=== PATIENT | female | born 1985 | race African-American/Black ===

== ENCOUNTER → 2016-07-20 | Outpatient (CLI) | payer MEDICARE, MEDICAID ==
[2016-07-20 13:09] LABS: AUTOMATED NEUTROPHIL # 2.1 TH/MM3 (1.8-7.7); BASOPHIL % 0.5 % (0.0-2.0); EOSINOPHIL # 0.1 TH/MM3 (0-0.4); EOSINOPHIL % 1.3 % (0.0-4.0); HEMATOCRIT 33.8 % (35.0-46.0); HEMO FLAGS DIFF FINAL; LYMPH % 36.3 % (9.0-44.0); LYMPHOCYTE # 1.6 TH/MM3 (1.0-4.8); MEAN CELL VOLUME 91.1 FL (80.0-100.0); MEAN CORPUSCULAR HEMOGLOBIN 30.2 PG (27.0-34.0); MEAN CORPUSCULAR HGB CONC 33.1 % (32.0-36.0); MONO % 13.9 % (0.0-8.0); PLATELET COUNT 220 TH/MM3 (150-450); RED CELL DISTRIBUTION WIDTH 13.9 % (11.6-17.2); WHITE BLOOD COUNT 4.3 TH/MM3 (4.0-11.0)
[2016-07-20 13:23] LABS: HEMOGLOBIN A1a 1.3 %; HEMOGLOBIN A1b 0.7 %; HEMOGLOBIN Ao 86.1 %; HEMOGLOBIN LA1C 1.8 %; HEMOGLOBIN P3 3.2 %
[2016-07-20 13:40] LABS: ANION GAP 4 MEQ/L (5-15); AST (GOT) 29 U/L (15-37); BICARBONATE 30.9 MEQ/L (21.0-32.0); BLOOD UREA NITROGEN 8 MG/DL (7-18); CHLORIDE 102 MEQ/L (98-107); GLOMERULAR FILTRATION RATE 117 ML/MIN (>89); GLUCOSE,FASTING 87 MG/DL (74-99); SODIUM (NA) 137 MEQ/L (136-145)
[2016-07-20 13:44] LABS: ALKALINE PHOSPHATASE 77 U/L (45-117); ALT (GPT) 34 U/L (10-53); TOTAL BILIRUBIN ADULT 0.4 MG/DL (0.2-1.0)
== END ==
LOC: CLAB 12:39
PROVIDERS: ATTEND Family Medicine
DX: E16.1 Other hypoglycemia (principal)
CPT/HCPCS: 36415; 80053; 83036; 85025

== ENCOUNTER → 2016-08-22 | Outpatient (CLI) | payer MEDICARE, MEDICAID ==
[2016-08-22 10:54] LABS: BASOPHIL % 0.6 % (0.0-2.0); EOSINOPHIL % 1.2 % (0.0-4.0); HEMATOCRIT 35.9 % (35.0-46.0); HEMO FLAGS DIFF FINAL; LYMPH % 32.5 % (9.0-44.0); LYMPHOCYTE # 1.2 TH/MM3 (1.0-4.8); MEAN CELL VOLUME 93.4 FL (80.0-100.0); MEAN CORPUSCULAR HEMOGLOBIN 30.4 PG (27.0-34.0); MEAN CORPUSCULAR HGB CONC 32.5 % (32.0-36.0); MONO % 14.2 % (0.0-8.0); NEUT % 51.5 % (16.0-70.0); PLATELET COUNT 209 TH/MM3 (150-450); RED BLOOD COUNT 3.85 MIL/MM3 (4.00-5.30); RED CELL DISTRIBUTION WIDTH 13.9 % (11.6-17.2); WHITE BLOOD COUNT 3.8 TH/MM3 (4.0-11.0)
[2016-08-22 11:33] LABS: ALKALINE PHOSPHATASE 75 U/L (45-117); ALT (GPT) 38 U/L (10-53); ANION GAP 7 MEQ/L (5-15); AST (GOT) 34 U/L (15-37); BICARBONATE 27.2 MEQ/L (21.0-32.0); BLOOD UREA NITROGEN 10 MG/DL (7-18); CHLORIDE 102 MEQ/L (98-107); FREE T4 0.83 NG/DL (0.76-1.46); GLOMERULAR FILTRATION RATE 93 ML/MIN (>89); GLUCOSE,FASTING 84 MG/DL (74-99); HDL CHOLESTEROL 112.3 MG/DL (40.0-60.0); INDIRECT BILIRUBIN 0.3 MG/DL (0.0-0.8); LDL CHOLESTEROL 66 MG/DL (0-99); POTASSIUM 4.2 MEQ/L (3.5-5.1); SODIUM (NA) 136 MEQ/L (136-145); TOTAL BILIRUBIN ADULT 0.4 MG/DL (0.2-1.0)
[2016-08-22 17:16] LABS: HEMOGLOBIN A1a 1.2 %; HEMOGLOBIN A1b 0.7 %; HEMOGLOBIN Ao 86.3 %; HEMOGLOBIN F 1.3 %; HEMOGLOBIN LA1C 1.9 %; HEMOGLOBIN P3 3.2 %
== END ==
LOC: CLAB 10:31
PROVIDERS: ATTEND Internal Medicine Cardiovascular Disease
DX: R06.02 Shortness of breath (principal); R07.2 Precordial pain; I42.0 Dilated cardiomyopathy; E78.2 Mixed hyperlipidemia; R73.01 Impaired fasting glucose; Z79.899 Other long term (current) drug therapy
CPT/HCPCS: 36415; 80048; 80061; 80076; 83036; 84439; 84443; 85025

== ENCOUNTER 2017-08-15 18:36 | Emergency (ER) | payer MEDICAID, MEDICARE ==
[~2017-08-15] VITALS: Ht 175.3 cm; Wt 76.0 kg
[2017-08-15 18:40] VITALS: BP 124/66; PULSE 88; RESP 16; RESP 46; TEMP 98.1; O2SAT 99
[2017-08-15] MEDS ORDERED: CARV20 PO (18:52)
[2017-08-15] MEDS ORDERED: FURO1TAB62 PO (18:52)
[2017-08-15] MEDS ORDERED: AMLO10TA2 PO (18:52)
[2017-08-15] MEDS ORDERED: SODIUM CHLORIDE 0.9% FLUSH 10 ML FLUSH IV FLUSH PRN (19:00)
--- NOTE | 2017-08-15 19:05 | PD ---
HPI Chief Complaint: Edema Time Seen by Provider: 18:53 Travel History International Travel<30 days: No Contact w/Intl Traveler<30days: No Traveled to known affect area: No History of Present Illness HPI 31-year-old female with history of cardiomyopathy on Lasix 20 mg twice a day, lisinopril, amlodipine, here for evaluation of bilateral lower extremity edema and left flank pain. The patient first noticed the lower extremity edema yesterday. When she woke up this morning it seemed to be improved, however worsened throughout the day today, is bilateral. No leg pain. No chest pain or dyspnea. She reports that she weighed herself last week and she was 155 pounds, and in triage today she was 160 pounds. She also has complaining of a discomfort in her left flank which she believes to be musculoskeletal. Pain described as a discomfort, mild to moderate, radiates occasionally to her left upper abdomen, no modifying factors. No hematuria or dysuria. No fevers or chills. PFSH Past Medical History Hx Anticoagulant Therapy: No Anemia: Yes Autoimmune Disease: Yes (LUPUS) Blood Disorders: No Anxiety: No Depression: No Cancer: No Cardiomyopathy: Yes ("SINCE ") Cardiovascular Problems: Yes (Cardiomyopathy ) High Cholesterol: No Chemotherapy: No Congestive Heart Failure: Yes Cerebrovascular Accident: No Diabetes: Yes (TYPE II MANAGED BY DIET ) Patient Takes Glucophage: No Diminished Hearing: No Endocrine: Yes Gastrointestinal Disorders: No Genitourinary: No Hypertension: Yes Immune Disorder: No Implanted Vascular Access Dvce: No Musculoskeletal: No Neurologic: No Psychiatric: No Reproductive: No Respiratory: No Immunizations Current: Yes ?: Not Menopausal: No : 2 Para: 1 Miscarriage: 0 : 1 Tubal Ligation: Yes Past Surgical History Abdominal Surgery: Yes (GASTRIC BYPASS SURGERY 2010) AICD: No Appendectomy: Yes Arteriovenous Shunt: No Section: Yes (X1) Gynecologic Surgery: Yes (C SECTION 2009) Hysterectomy: No Insulin Pump: No Joint Replacement: No Oral Surgery: Yes (X's 2 ) Pacemaker: No Other Surgery: Yes Social History Alcohol Use: Yes (3-4 times per week-wine) Tobacco Use: No Substance Use: No Allergies-Medications (Allergen,Severity, Reaction): Coded Allergies: iodine (Unverified Allergy, Intermediate, HIVES, 08/15/17) ALL OVER potassium iodide (Unverified Allergy, Intermediate, HIVES, 08/15/17) ALL OVER povidone-iodine (Unverified Allergy, Intermediate, HIVES, 08/15/17) ALL OVER sodium iodide (Unverified Allergy, Intermediate, HIVES, 08/15/17) ALL OVER sodium iodide (Unverified Allergy, Intermediate, HIVES, 08/15/17) ALL OVER shellfish derived (Unverified Adverse Reaction, Severe, Anaphylaxis, ) THROAT SWELLS AND CLOSES UP lactose (Unverified Adverse Reaction, Intermediate, DIARRHEA, 08/15/17) Reported Meds & Prescriptions Reported Meds & Active Scripts Active Reported Amlodipine (Amlodipine Besylate) 10 Mg Tab 10 Mg PO DAILY Lasix (Furosemide) 20 Mg Tab 20 Mg PO BID Coreg Cr 24 HR (Carvedilol) 20 Mg Cap 20 Mg PO DAILY Review of Systems Except as stated in HPI: all other systems reviewed are Neg Physical Exam Narrative GENERAL: Well-developed, well-nourished, comfortable, no acute distress. SKIN: Focused skin assessment warm/dry. HEAD: Atraumatic. Normocephalic. EYES: Pupils equal and round. No scleral icterus. No injection or drainage. ENT: No nasal bleeding or discharge. Mucous membranes pink and moist. NECK: Trachea midline. No JVD. CARDIOVASCULAR: Regular rate and rhythm. Distal pulses brisk and equal bilaterally. RESPIRATORY: No accessory muscle use. Clear to auscultation. Breath sounds equal bilaterally. GASTROINTESTINAL: Abdomen soft, nondistended. Mild epigastric and left upper quadrant tenderness without peritoneal signs. MUSCULOSKELETAL: No obvious deformities. No clubbing. No cyanosis. Mild bilateral lower extremity edema from foot to knee. Bilateral calves are supple , nontender. Mild left CVA tenderness. No right CVA tenderness. No midline vertebral step-off or tenderness. NEUROLOGICAL: Awake and alert. No obvious cranial nerve deficits. Motor grossly within normal limits. Normal speech. PSYCHIATRIC: Appropriate mood and affect; insight and judgment normal. Data Data Last Documented VS Vital Signs Date Time Temp Pulse Resp B/P (MAP) Pulse Ox O2 Delivery O2 Flow Rate FiO2 08/15/17 19:32 100 16 100 Room Air 08/15/17 18:40 98.1 124/66 (85) Orders Orders Complete Blood Count With Diff (08/15/17 19:00) Comprehensive Metabolic Panel (08/15/17 19:00) Lipase (08/15/17 19:00) Lactic Acid (08/15/17 19:00) Prothrombin Time / Inr (Pt) (08/15/17:00) Act Partial Throm Time (Ptt) (08/15/17:00) Urinalysis - C+S If Indicated (08/15/17:00) Ct Abd/Pel W/O Iv Contrast (08/15/17:00) Iv Access Insert/Monitor (08/15/17:00) Ecg Monitoring (08/15/17:00) Oximetry (08/15/17:00) Sodium Chloride 0.9% Flush (Ns Flush) (08/15/17:00) Electrocardiogram (08/15/17:00) Ed Urine Pregnancytest Poc (08/15/17:00) B-Type Natriuretic Peptide (08/15/17:00) Ckmb (Isoenzyme) Profile (08/15/17:00) Troponin I (08/15/17 19:00) Chest, Single Ap (08/15/17 19:00) Us Leg Venous Doppler Bilat (08/15/17 ) Oral Contrast - Adult (08/15/17 19:11) Diatrizoate Liq ( Gastroview Liq) (08/15/17 19:30) CKMB (08/15/17 19:16) CKMB% (08/15/17 19:16) Labs Laboratory Tests Test 08/15/17 19:16 White Blood Count 4.1 TH/MM3 Red Blood Count 3.81 MIL/MM3 Hemoglobin 11.4 GM/DL Hematocrit 35.9 % Mean Corpuscular Volume 94.3 FL Mean Corpuscular Hemoglobin 30.0 PG Mean Corpuscular Hemoglobin Concent 31.8 % Red Cell Distribution Width 13.4 % Platelet Count 251 TH/MM3 Mean Platelet Volume 8.0 FL Neutrophils (%) (Auto) 48.1 % Lymphocytes (%) (Auto) 38.9 % Monocytes (%) (Auto) 10.6 % Eosinophils (%) (Auto) 1.6 % Basophils (%) (Auto) 0.8 % Neutrophils # (Auto) 2.0 TH/MM3 Lymphocytes # (Auto) 1.6 TH/MM3 Monocytes # (Auto) 0.4 TH/MM3 Eosinophils # (Auto) 0.1 TH/MM3 Basophils # (Auto) 0.0 TH/MM3 CBC Comment DIFF FINAL Differential Comment Prothrombin Time 9.8 SEC Prothromb Time International Ratio 1.0 RATIO Activated Partial Thromboplast Time 26.4 SEC Urine Color YELLOW Urine Turbidity CLEAR Urine pH 5.5 Urine Specific [place] 1.025 Urine Protein NEG mg/dL Urine Glucose (UA) NEG mg/dL Urine Ketones NEG mg/dL Urine Occult Blood MOD Urine Nitrite NEG Urine Bilirubin NEG Urine Urobilinogen 0.2 MG/DL Urine Leukocyte Esterase NEG Urine RBC 3-5 /hpf Urine WBC 3-5 /hpf Urine Squamous Epithelial Cells > 8 /hpf Urine Bacteria OCC /hpf Microscopic Urinalysis Comment CULT NOT INDICATED Blood Urea Nitrogen 9 MG/DL Creatinine 0.84 MG/DL Random Glucose 86 MG/DL Total Protein 9.3 GM/DL Albumin 3.8 GM/DL Calcium Level 9.1 MG/DL Alkaline Phosphatase 84 U/L Aspartate Amino Transf (AST/SGOT) 77 U/L Alanine Aminotransferase (ALT/SGPT) 44 U/L Total Bilirubin 0.3 MG/DL Sodium Level 136 MEQ/L Potassium Level 3.9 MEQ/L Chloride Level 101 MEQ/L Carbon Dioxide Level 29.2 MEQ/L Anion Gap 6 MEQ/L Estimat Glomerular Filtration Rate 94 ML/MIN Lactic Acid Level 0.8 mmol/L Total Creatine Kinase 204 U/L Creatine Kinase MB 1.2 NG/ML Creatine Kinase MB % 0.6 % Troponin I LESS THAN 0.02 NG/ML B-Type Natriuretic Peptide 10 PG/ML Lipase 78 U/L [facility] Medical Decision Making Medical Screen Exam Complete: Yes Emergency Medical Condition: Yes Interpretation(s) EKG: Sinus, rate 65, normal axis, normal intervals, no acute ischemic abnormality. Differential Diagnosis Fluid overload, renal insufficiency, DVT, nephrolithiasis, ureterolithiasis, pyelonephritis, medication side effect to amlodipine Narrative Course Initial vital signs show heart rate 88, blood pressure 1/24/66, pulse ox 99% on room air, oral temp of 98.1F. CBC: WBC 4.1, hemoglobin 11.4, hematocrit 35.9, platelets 250. CMP is unremarkable. Cardiac enzymes are negative. BNP is 10. Lactic acid is 0.8. UA: Moderate occult blood, greater than 8 epithelial cells, occasional bacteria, negative nitrites, negative leukocyte esterase, not suggestive of UTI. Chest x-ray: CONCLUSION: The lungs are clear. Bilateral lower extremity duplex: CONCLUSION: Negative for deep venous thrombosis bilateral lower extremity. CT abdomen pelvis: CONCLUSION: 1. No dilated loops of small or large bowel. 2. No evidence of free fluid or free intraperitoneal gas. Patient was made aware of all findings. She states that her menstrual period ended yesterday, likely attributing to the microscopic hematuria seen on UA. At this point I believe she is stable for discharge home with outpatient follow- up with her primary care physician and flooring grader this week. I advised that she discontinue her amlodipine and that she were compression stockings and keep her legs elevated. She tells me that she usually wears compression stockings, however she did not wear them yesterday, and she stands on her feet all day at work. She is stable for discharge home with outpatient follow-up. She was advised on when to return to the emergency department. She verbalizes understanding and agreement with plan. Diagnosis Primary Impression: Bilateral lower extremity edema Additional Impressions: Left flank pain Microscopic hematuria Referrals: Greeting Card Maker 3 days Primary Care Physician 3 days Additional Instructions: Follow-up with your primary care physician this week. Follow-up with your flooring grader this week. Return to the emergency department for worsening symptoms or any other concerns. Disposition: 01 DISCHARGE HOME Condition: Stable dEward Miller MD Aug 15, 2017 19:05
[2017-08-15] MEDS ORDERED: DIATRIZOATE MEGLUM/DIATRIZOATE SOD 9 ML CUP PO ONE (19:30)
[2017-08-15 19:32] VITALS: PULSE 100; RESP 16; O2SAT 100
[2017-08-15 19:32] LABS: BILIRUBIN, URINE NEG (NEG); BLOOD, URINE MOD (NEG); GLUCOSE,URINE NEG (NEG); KETONE, URINE NEG (NEG); NITRITE,URINE NEG (NEG); PH, URINE 5.5 (5.0-8.5); URINE COLOR YELLOW (YELLW/STRAW); URINE LEUKOCYTE ESTERASE NEG (NEG)
[2017-08-15 19:36] LABS: BACTERIA, URINE OCC /hpf; SQUAMOUS EPITHELIAL CELL URINE > 8 /hpf (0-5)
[2017-08-15 19:40] LABS: BASOPHIL % 0.8 % (0.0-2.0); EOSINOPHIL # 0.1 TH/MM3 (0-0.4); EOSINOPHIL % 1.6 % (0.0-4.0); HEMATOCRIT 35.9 % (35.0-46.0); HEMOGLOBIN 11.4 GM/DL (11.6-15.3); LYMPH % 38.9 % (9.0-44.0); LYMPHOCYTE # 1.6 TH/MM3 (1.0-4.8); MEAN CELL VOLUME 94.3 FL (80.0-100.0); MEAN CORPUSCULAR HGB CONC 31.8 % (32.0-36.0); MONO % 10.6 % (0.0-8.0); MONOCYTE # 0.4 TH/MM3 (0-0.9); NEUT % 48.1 % (16.0-70.0); PLATELET COUNT 251 TH/MM3 (150-450); RED BLOOD COUNT 3.81 MIL/MM3 (4.00-5.30); RED CELL DISTRIBUTION WIDTH 13.4 % (11.6-17.2); WHITE BLOOD COUNT 4.1 TH/MM3 (4.0-11.0)
[2017-08-15 19:41] LABS: CHLORIDE 101 MEQ/L (98-107); SODIUM (NA) 136 MEQ/L (136-145)
[2017-08-15 19:44] LABS: CALCIUM 9.1 MG/DL (8.5-10.1)
[2017-08-15 19:45] LABS: ALBUMIN 3.8 GM/DL (3.4-5.0); BICARBONATE 29.2 MEQ/L (21.0-32.0); BLOOD UREA NITROGEN 9 MG/DL (7-18); GLUCOSE,RANDOM 86 MG/DL (74-106)
--- NOTE | 2017-08-15 19:46 | RADRPT ---
EXAM DATE/TIME: 08/15/2017 19:29 [facility] COMPARISON: CHEST SINGLE AP, May 24, 2016, 18:20. INDICATIONS : Chest discomfort, lower limb swelling for 2 days MEDICAL HISTORY : Cardiomyopathy SURGICAL HISTORY : None. ENCOUNTER: Initial ACUITY: 1 day PAIN SCORE: 0/10 LOCATION: Bilateral chest FINDINGS: A single view of the chest demonstrates the lungs to be symmetrically aerated without evidence of mas s, infiltrate or effusion. The cardiomediastinal contours are unremarkable. Osseous structures are intact. CONCLUSION: The lungs are clear. Jah Mcbride MD on August 15, 2017 at 19:45 Board Certified Radiologist. This report was verified electronically.
[2017-08-15 19:47] LABS: PROTHROMBIN TIME - PATIENT 9.8 SEC (9.8-11.6)
[2017-08-15 19:48] LABS: ALT (GPT) 44 U/L (10-53); AST (GOT) 77 U/L (15-37); CREATININE 0.84 MG/DL (0.50-1.00); GLOMERULAR FILTRATION RATE 94 ML/MIN (>89)
[2017-08-15 19:49] LABS: TOTAL BILIRUBIN ADULT 0.3 MG/DL (0.2-1.0); TOTAL PROTEIN 9.3 GM/DL (6.4-8.2)
[2017-08-15 19:51] LABS: ALKALINE PHOSPHATASE 84 U/L (45-117)
[2017-08-15 19:53] LABS: TROPONIN I LESS THAN 0.02 NG/ML (0.02-0.05)
--- NOTE | 2017-08-15 20:15 | RADRPT ---
EXAM DATE/TIME: 08/15/2017 19:38 [facility] COMPARISON: No previous studies available for comparison. INDICATIONS : Bilateral leg swelling. MEDICAL HISTORY : Hypertension. Diabetes mellitus type 2. Congestive heart failure. Cardiomyopathy. SURGICAL HISTORY : Tubal ligation. section. Gastric bypass. Appendectomy. ENCOUNTER: Initial ACUITY: 2 day PAIN SCORE: 0/10 LOCATION: Bilateral legs. TECHNIQUE: Venous ultrasound of the left and right leg was performed from the inguinal ligament to the proximal calf. Real-time, color Doppler and spectral tracing, compression and augmentation techniques were us ed. FINDINGS: RIGHT LEG: There is normal compressibility of the deep venous system from the inguinal region to the proximal ca lf. No echogenic clot is seen in the lumen of the common femoral, femoral, popliteal, and posterior tibial veins. There is a normal response of the venous system to proximal and distal augmentation an d respiration. LEFT LEG: There is normal compressibility of the deep venous system from the inguinal region to the proximal ca lf. No echogenic clot is seen in the lumen of the common femoral, femoral, popliteal, and posterior tibial veins. There is a normal response of the venous system to proximal and distal augmentation an d respiration. CONCLUSION: Negative for deep venous thrombosis bilateral lower extremity. Jah Mcbride MD on August 15, 2017 at 20:13 Board Certified Radiologist. This report was verified electronically.
--- NOTE | 2017-08-15 20:58 | RADRPT ---
EXAM DATE/TIME: 08/15/2017 20:32 [facility] COMPARISON: No previous studies available for comparison. INDICATIONS : Left sided abdomen pain. ORAL CONTRAST: Prescribed oral contrast ingested. RADIATION DOSE: 13.80 CTDIvol (mGy) MEDICAL HISTORY : Congestive heart failure. Diabetes mellitus type 2. Hypertension.Lupus. Cardiomyopathy. SURGICAL HISTORY : Gastric bypass. section.Appendectomy. ENCOUNTER: Initial ACUITY: 1 day PAIN SCALE: 7/10 LOCATION: Left abdomen TECHNIQUE: Volumetric scanning of the abdomen and pelvis was performed. Using automated exposure control and ad justment of the mA and/or kV according to patient size, radiation dose was kept as low as reasonably achievable to obtain optimal diagnostic quality images. DICOM format image data is available electro nically for review and comparison. FINDINGS: LOWER LUNGS: The visualized lower lungs are clear. LIVER: Homogeneous density without lesion for noncontrast technique. There is no dilation of the biliary tr ee. No calcified gallstones. SPLEEN: Normal size without lesion. PANCREAS: Within normal limits. KIDNEYS: Normal in size and shape. There is no mass, stone, or hydronephrosis. ADRENAL GLANDS: Within normal limits. VASCULAR: There is no aortic aneurysm. BOWEL/MESENTERY: Anastomosis of the stomach from prior gastric bypass. Oral contrast passes through to the mid to dis ines small bowel. No dilated loops of small or large bowel. Mild amount of stool throughout the colo n. No evidence of free fluid. ABDOMINAL WALL: Within normal limits. RETROPERITONEUM: There is no lymphadenopathy. BLADDER: No wall thickening or mass. REPRODUCTIVE: Anteverted uterus. No evidence of free fluid. INGUINAL: There is no lymphadenopathy or hernia. MUSCULOSKELETAL: Within normal limits for patient age. CONCLUSION: 1. No dilated loops of small or large bowel. 2. No evidence of free fluid or free intraperitoneal gas. Jah Mcbride MD on August 15, 2017 at 20:55 Board Certified Radiologist. This report was verified electronically.
[2017-08-15 21:11] VITALS: BP 139/75; PULSE 74; RESP 16; O2SAT 100
--- NOTE | 2017-08-16 21:32 | EKG ---
Date Performed: 08/15/2017 Time Performed: 19:18:03 PTAGE: 31 years EKG: Sinus rhythm WITH SINUS ARRHYTHMIA NORMAL ECG PREVIOUS TRACING : 05/24/2016 17.05 No significant change from previous tracing noted. DOCTOR: Doron Taylor Interpretating Date/Time 08/16/2017 21:31:35
== END 2017-08-15 21:27 | disposition home or self-care (01) ==
LOC: PHED 18:36
DX: R60.0 Localized edema (principal); R10.9 Unspecified abdominal pain; R31.29 Other microscopic hematuria; O90.3 Peripartum cardiomyopathy; M32.9 Systemic lupus erythematosus, unspecified; I11.0 Hypertensive heart disease with heart failure; I50.9 Heart failure, unspecified; E11.9 Type 2 diabetes mellitus without complications
CPT/HCPCS: 71045; 74176; 80053; 81001; 82550; 82552; 83605; 83690; 83880; 84484; 84703; 85025; 85610; 85730; 93005; 93970; 99285; Q9963

== ENCOUNTER 2018-05-13 01:58 | Inpatient (IN) ==
--- NOTE | 2018-05-13 02:10 | ED ---
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 According to the patient she went to bed approximately 10 PM last evening feeling well voicing no concerns or complaints. Patient states she awakened approximately 30 minutes ago approximately 1:15 AM at which time she was getting up out of bed to go to the bathroom and as she was walking to the bathroom she started noticing weakness of the left upper extremity and left lower extremity. Patient states palpitations resolved almost immediately but weakness of the left upper extremity and left lower extremity persisted and upon EMS arrival patient was noted to have complaint of left upper extremity and left lower extremity weakness such that she could not use the left upper extremity at all and has had resumption of function of the left lower extremity. Patient denies any injury or fall. No headache no history of migraines no previous history of left-sided weakness. No recent febrile illness or viral syndrome. Patient states she is unable to move her left upper extremity and has decreased sensation of left upper extremity. Patient denies any other paresthesias. Patient has no change in her vision no change in her speech no difficulty with swallowing no facial droop has been noted patient's tongue is midline patient has normal shoulder shrug of the right upper extremity but is unable to do sugars of the left upper extremity. Patient has no chest pain no shortness of breath no nausea no vomiting no abdominal pain and states she takes no medication for her diabetes EMS was noted to call stroke alert in the field at 1:53 AM they arrived at 1:59 AM patient went immediately to CT at 2:05 AM patient was noted to have left-sided weakness including the left upper extremity left leg by EMS but they have noted since arrival to the emergency department that her left lower extremity function has returned to normal her BGL is 109 her initial blood pressure was 148/88 in the field her O2 saturation was 100% on 2 L/min nasal cannula again no head trauma and NIH score of 4 upon arrival to the emergency department. Related Data Home Medications Medication Instructions Recorded Confirmed carvedilol 25 mg PO DAILY 05/13/18 1218 lisinopril 20 mg PO DAILY 05/13/18 05/13/18 Allergies Allergy/AdvReac Type Severity Reaction Status Date / Time iodine Allergy Intermediate HIVES Verified 05/13/18 02:18 potassium iodide Allergy Intermediate HIVES Verified 05/13/18 02:18 povidone-iodine Allergy Intermediate HIVES Verified 05/13/18 02:18 sodium iodide Allergy Intermediate HIVES Verified 05/13/18 02:18 sodium iodide Allergy Intermediate HIVES Verified 05/13/18 02:18 shellfish derived AdvReac Severe Anaphylaxis Verified 05/13/18 02:18 lactose AdvReac Intermediate DIARRHEA Verified 05/13/18 02:18 Review of Systems ROS: all other systems reviewed are negative PMFSH History History Provided By: Patient Medical History Medical History Cardiomyopathy (Acute) Social History Social History Substance History: No History of Abuse Second Hand Smoke Exposure: Yes Smoking Status: Never smoker How Often Do You Have a Drink Containing Alcohol: 4 or more times a week Recent Travel in [place] within the Last 8 Weeks: No Recent Out of Country Travel within the Last 8 Weeks: No Exam Narrative Exam Narrative: GENERAL: Well-developed well-nourished female in no acute distress no respiratory distress on EMS stretcher going directly to CT scanner bypassing the ED exam room with GCS of 15 patient is identified to have flaccid left upper extremity unable to perform function of movement of the left upper extremity to evaluate for limb ataxia with a NIH SS of 4. SKIN: Focused skin assessment warm/dry. HEAD: Atraumatic. Normocephalic. EYES: Pupils equal and round and reactive to light without field deficit. No scleral icterus. No injection or drainage. ENT: No nasal bleeding or discharge. Mucous membranes pink and moist. Airway is patent tongue is midline. No facial droop. No facial asymmetry. NECK: Trachea midline. No JVD. CARDIOVASCULAR: Regular rate and rhythm. No murmur appreciated. RESPIRATORY: No accessory muscle use. Clear to auscultation. Breath sounds equal bilaterally. GASTROINTESTINAL: Abdomen soft, non-tender, nondistended. Hepatic and splenic margins not palpable. MUSCULOSKELETAL: No obvious deformities. No clubbing. No cyanosis. No edema. Left upper extremity flaccid to lifting the left upper extremity although does have mild bee raiser strength affecting the left hand. Sensation intact NEUROLOGICAL: Awake and alert. No obvious cranial nerve deficits. Motor grossly within normal limits. Normal speech. PSYCHIATRIC: Appropriate mood and affect; insight and judgment normal. Course Consultations Consultation #1: Patient's case and presentation discussed with tele-rad neurologist Dr. Galloway per protocol who recommends patient proceed with TPA if patient is agreeable to accept this medication intervention. Dr. Galloway is aware the patient has anaphylactic reaction to iodine and hives and that CTA was ordered but canceled due to iodine adverse reaction. Dr. Galloway recommends patient proceed with alteplase as well as MR brain noncontrast and MRA of carotids and brain without contrast. Call was received by reading radiologist Dr. Cutler who states that CT brain noncontrast at 2:22 AM is negative this is shared with on-call tele-rad neurologist Dr. Galloway he is aware that patient will not proceed with initially ordered CTAs due to contrast allergy and that stat MR studies and MRI studies have been ordered. Consultation #2: discussed with Dr Rock for admit post tpa to [facility] at [facility] Initial Documented Vital Signs Pulse Rate 100 H 05/13/18 02:03 Pulse Oximetry 97 05/13/18 02:03 Last Documented Vital Signs Temperature 98.6 F 05/14/18 20:00 Pulse Rate 74 05/14/18 20:00 Respiratory Rate 24 05/14/18 20:00 Blood Pressure 132/80 05/14/18 20:00 Pulse Oximetry 100 05/14/18 20:00 NIH Stroke Scale NIH Stroke Scale Level of Consciousness: 0-Alert Orientation Questions: 0-Answers both correct Responds to Commands: 0-Both tasks correct Gaze Eye Movement: 0-Horizontal movement WNL Visual Kimbrough: 0-No visual field defect Facial Movement: 0-Normal Motor Functions Arm LEFT: 3-No effort against gravity Motor Functions Arm RIGHT: 0-No drift Motor Functions Leg LEFT: 0-No drift Motor Functions Leg RIGHT: 0-No drift Limb Ataxia: 1-Ataxia in one limb Sensory Loss: 0-No sensory loss Best Language: 0-Normal Articulation: 0-Normal Extinction or Inattention Sensory: 0-Absent Total: 4 Medical Decision Making MDM Narrative Medical decision making narrative: 32-year-old female with new onset left-sided weakness specifically affecting left upper extremity at this time without resolution has gone emergently to CT for noncontrast imaging study IV access has been obtained patient has been placed on stroke bed and weight has been obtained. Patient is kept supine with maintenance IV fluids at 70 cc/h manager call neurologist/tele-rad neurologist Dr. Galloway has been contacted and case discussed with him and he has evaluated the patient via tele-rad assessment and again recommends TPA administration which has been ordered. Patient is agreeable to receive thrombolytic TPA administration at 2:30 AM and medication has already been ordered. At 2:[address] Galloway neurologist/ tele-rad neurologist involved in patient management --discussed case with reading radiologist Dr. Cutler due to patient's allergy to iodine we will not proceed with CTA and due to patient's NIH scale not a strong candidate for interventional radiology management of CVA. Also at this point time due to her reported allergy to iodine and shellfish risk of adverse reaction to IV contrast even with premedication with Solu-Medrol the neurologist feels it is contraindicated for this patient and per Dr. Galloway the radiologist does not feel that patient is an IR candidate either. We will continue to proceed with thrombolytic therapy is aware that as patient is not a procedural intervention candidate that emergent/stat MR studies are not needed at this time will change from MRI and MRA studies stat to urgent and request addition of echo in a.m. for patient. Neurologist is aware the patient will be transferred to [facility] to [facility] as she has received TPA. Medical Screen Exam Complete: Yes Emergency Medical Condition: Yes Differential Diagnosis Differential Diagnosis: CVA, ICH, TIA, migraine variant, vasculitis/history of lupus Medical Records Medical records reviewed: Yes I reviewed the patient's medical records. Lab Data Lab results reviewed: Yes I reviewed the patient's lab results. Result diagrams: 05/13/18 01:49 05/13/18 01:49 POC Results POC Urine Results Negative Lab Results 05/13/18 05/13/18 05/13/18 Range/Units 01:49 01:49 01:49 CBC w Diff Auto diff final WBC 6.1 (4.0-11.0) th/mm3 RBC 3.46 L (4.00-5.30) mil/mm3 Hgb 10.9 L (11.6-15.3) gm/dL Hct 32.8 L (35.0-46.0) % MCV 94.9 (80.0-100.0) fL MCH 31.6 (27.0-34.0) pg MCHC 33.3 (32.0-36.0) % RDW 14.6 (11.6-17.2) % Plt Count 274 D (150-450) th/mm3 MPV 7.6 (7.0-11.0) fL Neut % (Auto) 40.3 (16.0-70.0) % Lymph % (Auto) 40.0 (9.0-44.0) % [place] % (Auto) 17.6 H (0.0-8.0) % Eos % (Auto) 1.5 (0.0-4.0) % Baso % (Auto) 0.6 (0.0-2.0) % Neut # (Auto) 2.5 (1.8-7.7) th/mm3 Lymph # (Auto) 2.4 (1.0-4.8) th/mm3 [place] # (Auto) 1.1 H (0.0-0.9) th/mm3 Eos # (Auto) 0.1 (0.0-0.4) th/mm3 Baso # (Auto) 0.0 (0.0-0.2) th/mm3 WBC Differential . Differential Comment . PT 10.2 (9.8-11.6) sec INR 1.0 Ratio APTT 27.7 (23.4-31.7) sec Fibrinogen 254 (227-377) mg/dL Sodium (136-145) meq/L Potassium (3.5-5.1) meq/L Chloride (98-107) meq/L Carbon Dioxide (21.0-32.0) meq/L Anion Gap (5-15) meq/L BUN (7-18) mg/dL Creatinine (0.50-1.00) mg/dL Estimated GFR (>89) mL/min POC Glucose (68-110) mg/dl Random Glucose (74-106) mg/dL Hemoglobin A1c (4.3-6.0) % Calcium (8.5-10.1) mg/dL Total Creatine Kinase 200 H (26-192) U/L CK-MB (CK-2) 1.2 (0.5-3.6) ng/mL CK-MB (CK-2) % 0.6 (0.0-4.0) % Troponin I Less than 0.02 L (0.02-0.05) ng/mL Triglycerides (42-150) mg/dL Cholesterol (120-200) mg/dL LDL Cholesterol, Calc (0-99) mg/dL HDL Cholesterol (40.0-60.0) mg/dL Cholesterol/HDL Ratio Ratio Vitamin B12 (193-986) pg/mL Folate (3.1-17.5) ng/mL TSH (0.358-3.740) uIU/mL Beta HCG, Quant Less than 1 (0-5) mIU/mL Urine Color (Yellw/Straw) Urine Clarity (Clear) Urine pH (5.0-8.5) Ur Specific [place] (1.002-1.035) Urine Protein (Neg-Trace) mg/dL Urine Glucose (UA) (Negative) mg/dL Urine Ketones (Negative) mg/dL Urine Occult Blood (Negative) Urine Nitrate (Negative) Urine Bilirubin (Negative) Urine Urobilinogen (Less than 2) mg/dL Ur Leukocyte Esterase (Negative) Urine RBC (0-3) /hpf Urine WBC (0-5) /hpf Ur Squamous Epith Cells (0-5) /hpf Micro UA Comment Ur Microscopic Review Urine Culture Comments Nasal Screen MRSA (PCR) (Negative) Urine Opiates Screen (Neg) Ur Barbiturates Screen (Neg) Ur Amphetamines Screen (Neg) U Benzodiazepines Scrn (Neg) Urine Cocaine Screen (Neg) U Cannabinoids Screen (Neg) Blood Type Antibody Screen 05/13/18 05/13/18 05/13/18 Range/Units 01:49 01:49 02:20 CBC w Diff WBC (4.0-11.0) th/mm3 RBC (4.00-5.30) mil/mm3 Hgb (11.6-15.3) gm/dL Hct (35.0-46.0) % MCV (80.0-100.0) fL MCH (27.0-34.0) pg MCHC (32.0-36.0) % RDW (11.6-17.2) % Plt Count (150-450) th/mm3 MPV (7.0-11.0) fL Neut % (Auto) (16.0-70.0) % Lymph % (Auto) (9.0-44.0) % Barbour % (Auto) (0.0-8.0) % Eos % (Auto) (0.0-4.0) % Baso % (Auto) (0.0-2.0) % Neut # (Auto) (1.8-7.7) th/mm3 Lymph # (Auto) (1.0-4.8) th/mm3 [place] # (Auto) (0.0-0.9) th/mm3 Eos # (Auto) (0.0-0.4) th/mm3 Baso # (Auto) (0.0-0.2) th/mm3 WBC Differential Differential Comment PT (9.8-11.6) sec INR Ratio APTT (23.4-31.7) sec Fibrinogen (227-377) mg/dL Sodium 135 L (136-145) meq/L Potassium 3.6 (3.5-5.1) meq/L Chloride 100 (98-107) meq/L Carbon Dioxide 23.5 (21.0-32.0) meq/L Anion Gap 12 (5-15) meq/L BUN 11 (7-18) mg/dL Creatinine 0.84 (0.50-1.00) mg/dL Estimated GFR Greater than 89 (>89) mL/min POC Glucose (68-110) mg/dl Random Glucose 114 H (74-106) mg/dL Hemoglobin A1c 5.1 (4.3-6.0) % Calcium 8.5 (8.5-10.1) mg/dL Total Creatine Kinase (26-192) U/L CK-MB (CK-2) (0.5-3.6) ng/mL CK-MB (CK-2) % (0.0-4.0) % Troponin I (0.02-0.05) ng/mL Triglycerides (42-150) mg/dL Cholesterol (120-200) mg/dL LDL Cholesterol, Calc (0-99) mg/dL HDL Cholesterol (40.0-60.0) mg/dL Cholesterol/HDL Ratio Ratio Vitamin B12 (193-986) pg/mL Folate (3.1-17.5) ng/mL TSH (0.358-3.740) uIU/mL Beta HCG, Quant (0-5) mIU/mL Urine Color (Yellw/Straw) Urine Clarity (Clear) Urine pH (5.0-8.5) Ur Specific [place] (1.002-1.035) Urine Protein (Neg-Trace) mg/dL Urine Glucose (UA) (Negative) mg/dL Urine Ketones (Negative) mg/dL Urine Occult Blood (Negative) Urine Nitrate (Negative) Urine Bilirubin (Negative) Urine Urobilinogen (Less than 2) mg/dL Ur Leukocyte Esterase (Negative) Urine RBC (0-3) /hpf Urine WBC (0-5) /hpf Ur Squamous Epith Cells (0-5) /hpf Micro UA Comment Ur Microscopic Review Urine Culture Comments Nasal Screen MRSA (PCR) (Negative) Urine Opiates Screen (Neg) Ur Barbiturates Screen (Neg) Ur Amphetamines Screen (Neg) U Benzodiazepines Scrn (Neg) Urine Cocaine Screen (Neg) U Cannabinoids Screen (Neg) Blood Type O Positive Antibody Screen Negative 05/13/18 05/13/18 05/13/18 Range/Units 02:54 03:58 03:58 CBC w Diff WBC (4.0-11.0) th/mm3 RBC (4.00-5.30) mil/mm3 Hgb (11.6-15.3) gm/dL Hct (35.0-46.0) % MCV (80.0-100.0) fL MCH (27.0-34.0) pg MCHC (32.0-36.0) % RDW (11.6-17.2) % Plt Count (150-450) th/mm3 MPV (7.0-11.0) fL Neut % (Auto) (16.0-70.0) % Lymph % (Auto) (9.0-44.0) % Barbour % (Auto) (0.0-8.0) % Eos % (Auto) (0.0-4.0) % Baso % (Auto) (0.0-2.0) % Neut # (Auto) (1.8-7.7) th/mm3 Lymph # (Auto) (1.0-4.8) th/mm3 [place] # (Auto) (0.0-0.9) th/mm3 Eos # (Auto) (0.0-0.4) th/mm3 Baso # (Auto) (0.0-0.2) th/mm3 WBC Differential Differential Comment PT (9.8-11.6) sec INR Ratio APTT (23.4-31.7) sec Fibrinogen (227-377) mg/dL Sodium (136-145) meq/L Potassium (3.5-5.1) meq/L Chloride (98-107) meq/L Carbon Dioxide (21.0-32.0) meq/L Anion Gap (5-15) meq/L BUN (7-18) mg/dL Creatinine (0.50-1.00) mg/dL Estimated GFR (>89) mL/min POC Glucose 96 (68-110) mg/dl Random Glucose (74-106) mg/dL Hemoglobin A1c (4.3-6.0) % Calcium (8.5-10.1) mg/dL Total Creatine Kinase (26-192) U/L CK-MB (CK-2) (0.5-3.6) ng/mL CK-MB (CK-2) % (0.0-4.0) % Troponin I (0.02-0.05) ng/mL Triglycerides (42-150) mg/dL Cholesterol (120-200) mg/dL LDL Cholesterol, Calc (0-99) mg/dL HDL Cholesterol (40.0-60.0) mg/dL Cholesterol/HDL Ratio Ratio Vitamin B12 (193-986) pg/mL Folate (3.1-17.5) ng/mL TSH (0.358-3.740) uIU/mL Beta HCG, Quant (0-5) mIU/mL Urine Color Yellow (Yellw/Straw) Urine Clarity Clear (Clear) Urine pH 6.0 (5.0-8.5) Ur Specific [place] 1.010 (1.002-1.035) Urine Protein Negative (Neg-Trace) mg/dL Urine Glucose (UA) Negative (Negative) mg/dL Urine Ketones Negative (Negative) mg/dL Urine Occult Blood Negative (Negative) Urine Nitrate Negative (Negative) Urine Bilirubin Negative (Negative) Urine Urobilinogen 0.2 (Less than 2) mg/dL Ur Leukocyte Esterase Negative (Negative) Urine RBC 0-3 (0-3) /hpf Urine WBC 0-5 (0-5) /hpf Ur Squamous Epith Cells 0-5 (0-5) /hpf Micro UA Comment Culture not ind Ur Microscopic Review Microscopic reviewed Urine Culture Comments Culture not ind Nasal Screen MRSA (PCR) (Negative) Urine Opiates Screen Neg (Neg) Ur Barbiturates Screen Neg (Neg) Ur Amphetamines Screen Neg (Neg) U Benzodiazepines Scrn Neg (Neg) Urine Cocaine Screen Neg (Neg) U Cannabinoids Screen Neg (Neg) Blood Type Antibody Screen 05/13/18 05/13/18 Range/Units 06:00 17:39 CBC w Diff WBC (4.0-11.0) th/mm3 RBC (4.00-5.30) mil/mm3 Hgb (11.6-15.3) gm/dL Hct (35.0-46.0) % MCV (80.0-100.0) fL MCH (27.0-34.0) pg MCHC (32.0-36.0) % RDW (11.6-17.2) % Plt Count (150-450) th/mm3 MPV (7.0-11.0) fL Neut % (Auto) (16.0-70.0) % Lymph % (Auto) (9.0-44.0) % [place]bour % (Auto) (0.0-8.0) % Eos % (Auto) (0.0-4.0) % Baso % (Auto) (0.0-2.0) % Neut # (Auto) (1.8-7.7) th/mm3 Lymph # (Auto) (1.0-4.8) th/mm3 [place] # (Auto) (0.0-0.9) th/mm3 Eos # (Auto) (0.0-0.4) th/mm3 Baso # (Auto) (0.0-0.2) th/mm3 WBC Differential Differential Comment PT (9.8-11.6) sec INR Ratio APTT (23.4-31.7) sec Fibrinogen (227-377) mg/dL Sodium (136-145) meq/L Potassium (3.5-5.1) meq/L Chloride (98-107) meq/L Carbon Dioxide (21.0-32.0) meq/L Anion Gap (5-15) meq/L BUN (7-18) mg/dL Creatinine (0.50-1.00) mg/dL Estimated GFR (>89) mL/min POC Glucose (68-110) mg/dl Random Glucose (74-106) mg/dL Hemoglobin A1c (4.3-6.0) % Calcium (8.5-10.1) mg/dL Total Creatine Kinase (26-192) U/L CK-MB (CK-2) (0.5-3.6) ng/mL CK-MB (CK-2) % (0.0-4.0) % Troponin I (0.02-0.05) ng/mL Triglycerides 68 (42-150) mg/dL Cholesterol 191 (120-200) mg/dL LDL Cholesterol, Calc 70 (0-99) mg/dL HDL Cholesterol 107.5 H (40.0-60.0) mg/dL Cholesterol/HDL Ratio 1.77 Ratio Vitamin B12 387 (193-986) pg/mL Folate 5.0 (3.1-17.5) ng/mL TSH 3.630 (0.358-3.740) uIU/mL Beta HCG, Quant (0-5) mIU/mL Urine Color (Yellw/Straw) Urine Clarity (Clear) Urine pH (5.0-8.5) Ur Specific [place] (1.002-1.035) Urine Protein (Neg-Trace) mg/dL Urine Glucose (UA) (Negative) mg/dL Urine Ketones (Negative) mg/dL Urine Occult Blood (Negative) Urine Nitrate (Negative) Urine Bilirubin (Negative) Urine Urobilinogen (Less than 2) mg/dL Ur Leukocyte Esterase (Negative) Urine RBC (0-3) /hpf Urine WBC (0-5) /hpf Ur Squamous Epith Cells (0-5) /hpf Micro UA Comment Ur Microscopic Review Urine Culture Comments Nasal Screen MRSA (PCR) Not detected (Negative) Urine Opiates Screen (Neg) Ur Barbiturates Screen (Neg) Ur Amphetamines Screen (Neg) U Benzodiazepines Scrn (Neg) Urine Cocaine Screen (Neg) U Cannabinoids Screen (Neg) Blood Type Antibody Screen Imaging Data Attestation: I personally reviewed and interpreted this imaging study as follows : Radiologist's impression: Head MRI 05/13/18 00:00 CONCLUSION: 1. Unremarkable MRI of the brain. Head MRA 05/13/18 00:00 CONCLUSION: 1. Unremarkable MRA of the brain. Neck MRA 05/13/18 00:00 CONCLUSION: 1. Unremarkable MRA of the carotids. Percent stenosis is calculated using the diameter of the stenotic region over the diameter of the normal distal internal carotid artery Chest X-Ray 05/13/18 02:03 CONCLUSION: Negative examination. Head CT 05/13/18 02:03 CONCLUSION: 1. Negative CT Head non contrast. Report was called by [Dr. Cutler to Dr. Chin at 0218 hours ] Head CT 05/14/18 02:26 CONCLUSION: 1. Negative CT Head non contrast. . Cervical Spine MRI 05/14/18 07:10 CONCLUSION: No evidence of disc protrusion or spinal canal stenosis. ECG Data EKG Prior to Arrival: No Attestation: I personally reviewed and interpreted this ECG as follows: Discharge Plan Discharge Disposition Patient Disposition: ED Admit(ED Internal Use Only) Discharge Condition Condition: Stable Discharge Order Discharge Orders: ED Use Only Admit Order (Routine); Ordered 05/13/18 Ordered By: Georgie Chin Physicians Team ED Provider: Georgie Chin Primary Care Provider: Karan Betts Attending Provider: Jerrica Danielson Other Providers: William Galloway Vincent G Status ED Status: Left Department Discharge Information Discharge Date/Time: 05/13/18 05:08
[2018-05-13 02:13] LABS: Baso % (Auto) 0.6 % (0.0-2.0); Eos # (Auto) 0.1 th/mm3 (0.0-0.4); Eos % (Auto) 1.5 % (0.0-4.0); Hematocrit 32.8 % (35.0-46.0); Hemoglobin 10.9 gm/dL (11.6-15.3); Lymph # (Auto) 2.4 th/mm3 (1.0-4.8); Mean Corpuscular HGB Conc 33.3 % (32.0-36.0); Mean Corpuscular Hemoglobin 31.6 pg (27.0-34.0); Mean Corpuscular Volume 94.9 fL (80.0-100.0); Mean Platelet Volume 7.6 fL (7.0-11.0); Mono # (Auto) 1.1 th/mm3 (0.0-0.9); Mono % (Auto) 17.6 % (0.0-8.0); Neut # (Auto) 2.5 th/mm3 (1.8-7.7); Neut % (Auto) 40.3 % (16.0-70.0); Platelet Count 274 th/mm3 (150-450); Red Blood Count 3.46 mil/mm3 (4.00-5.30); Red Cell Distribution Width 14.6 % (11.6-17.2); White Blood Count 6.1 th/mm3 (4.0-11.0)
--- NOTE | 2018-05-13 02:23 | CT ---
EXAM DATE: 05/13/2018 2:11 AM EST AGE/SEX: 32 years / Female INDICATIONS: Stroke alert. Left arm weakness. CLINICAL DATA: This is the patient's initial encounter. Patient reports that signs and symptoms have been present for 1 day and indicates a pain score of 0/10. MEDICAL/SURGICAL HISTORY: Hypertension. Diabetes. Cardiovascular disease. None. RADIATION DOSE: 62.31 CTDI (mGy) COMPARISON: None. TECHNIQUE: CT of the head without contrast. Using automated exposure control and adjustment of the mA and/or kV according to patient size, radiation dose was kept as low as reasonably achievable to ob tain optimal diagnostic quality images. DICOM format image data is available electronically for revi ew and comparison. FINDINGS: Cerebrum: The ventricles are normal for age. No evidence of midline shift, mass lesion, hemorrhage or acute infarction. No extraaxial fluid collections are seen. Posterior Fossa: The cerebellum and brainstem are intact. The 4th ventricle is midline. The cerebe llopontine angle is unremarkable. Extracranial: The visualized portion of the orbits is intact. Skull: The calvaria is intact. No evidence of skull fracture. CONCLUSION: 1. Negative CT Head non contrast. Report was called by [Dr. Cutler to Dr. Chin at 0218 hours ] Electronically signed by: Jah Cutler MD 05/13/2018 2:22 AM EST
[2018-05-13 02:26] LABS: Activated Partial Thrombo Time 27.7 sec (23.4-31.7); Prothrombin Time 10.2 sec (9.8-11.6)
[2018-05-13] MEDS ORDERED: ALTEPLASE DRIP IV.SIG ONE (02:26)
[2018-05-13] MEDS ORDERED: Alteplase Bolus 9 MG/9 ML Syringe IV.PUSH ONE (02:26)
[2018-05-13 02:31] LABS: Creatine Kinase 200 U/L (26-192)
[2018-05-13 02:43] LABS: CKMB Percent 0.6 % (0.0-4.0); Creatine Kinase MB 1.2 ng/mL (0.5-3.6)
[2018-05-13 02:58] LABS: Chloride 100 meq/L (98-107); Potassium 3.6 meq/L (3.5-5.1); Sodium 135 meq/L (136-145)
[2018-05-13 03:00] LABS: Calcium 8.5 mg/dL (8.5-10.1)
[2018-05-13 03:01] LABS: Anion Gap 12 meq/L (5-15); Blood Urea Nitrogen 11 mg/dL (7-18); Carbon Dioxide 23.5 meq/L (21.0-32.0); Glucose,Random 114 mg/dL (74-106)
[2018-05-13 03:04] LABS: Glomerular Filtration Rate Greater Than 89 mL/min (>89)
[2018-05-13] MEDS ORDERED: MethylPREDNISolone Sod Succinate Inj 125 MG/2 ML Vial IV.PUSH ONE (03:10)
[2018-05-13] MEDS ORDERED: Famotidine PF Inj 20 MG/2 ML Vial IV.PUSH ONE (03:10)
[2018-05-13] MEDS: Sod Chloride 0.9% Inj 1,000 ML IV.CONT SCH ×2 (03:10→19:23)
--- NOTE | 2018-05-13 03:28 | MB ---
cc: William Galloway MD, PhD DATE: 05/13/2018 REASON FOR CONSULTATION: Stroke alert. HISTORY OF PRESENT ILLNESS: This is a 32-year-old female who has a history of hypertension, diabetes, cardiomyopathy and lupus. She now presents with left arm weakness as a stroke alert. She states she went to sleep at 10 p.m. yesterday evening with no neurological deficit. She woke at 1:15 a.m. with no neurological deficit. As she was walking to the restroom, developed weakness of the left upper extremity, which has remained. She denies left leg weakness. No speech changes. No other neurological symptoms. PAST MEDICAL HISTORY: Remarkable for lupus, cardiomyopathy, diabetes, hypertension. MEDICATIONS: None. She takes no anticoagulants. ALLERGIES: SHE HAS A SEVERE ALLERGY TO IODINE WITH ANAPHYLAXIS. NEUROLOGICAL EXAMINATION: VITAL SIGNS: Blood pressure 148/88, pulse is 80 and regular, respirations are 16. HIGHER CORTICAL FUNCTIONS: Conducted through the teleneurology. She is able to follow commands. Her speech is normal. CRANIAL NERVES: 2-12, normal. There is no evidence of any facial droop. MOTOR EXAM: She is weak in the left arm. She is unable to lift the arm up against gravity proximally. She does have fairly good mobility of the left wrist and hand. She has normal strength in the left leg normal. Normal right upper extremity and right lower extremity strength. IMAGING DATA: CT brain is normal. CT angiogram brain: We are unable to do this test because of her SEVERE ALLERGY TO IODINE. LABORATORY DATA: White count 6100, hemoglobin 10.9, hematocrit 32.8%, platelets 274,000. PT 10.2. INR 1. APTT 27.7. CPK 200. IMPRESSION: Acute right hemisphere stroke. CT brain is negative. The patient is a candidate for IV tPA. Her NIH stroke scale is 4. I discussed this with the patient including the 6% risk of hemorrhage. She is agreeable to proceeding with the IV tPA. She is not a candidate for intervention given the relatively low NIH stroke scale as well as SEVERE IODINE ALLERGY. ADDENDUM The patient's serum glucose was 109. William Galloway MD, PhD TERESA/rw , 02:50 AM , 03:04 AM
--- NOTE | 2018-05-13 03:36 | XR ---
EXAM DATE: 05/13/2018 3:09 AM EST AGE/SEX: 32 years / Female INDICATIONS: Stroke alert. CLINICAL DATA: This is the patient's initial encounter. Patient reports that signs and symptoms have been present for 1 day and indicates a pain score of 0/10. MEDICAL/SURGICAL HISTORY: None. None. COMPARISON: [facility] [place], CHEST 1V SINGLE AP, 04/18/2018. . FINDINGS: A single AP view of the chest demonstrates the lungs to be symmetrically aerated without evidence of mass, infiltrate or effusion. The cardiomediastinal contours are unremarkable. Osseous structures a re intact. CONCLUSION: Negative examination. Electronically signed by: Jah Cutler MD 05/13/2018 3:35 AM EST
[2018-05-13] MEDS ORDERED: Sodium Chlor 0.9% Inj 250 ML IV.SIG SCH (04:00)
[2018-05-13 04:12] LABS: Bilirubin,Urine Negative (Negative); Clarity,Urine Clear (Clear); Color,Urine Yellow (Yellw/Straw); Glucose,Urine (UA) Negative (Negative); Leukocyte Esterase,Urine Negative (Negative); Nitrite,Urine Negative (Negative); Urobilinogen,Urine 0.2 mg/dL (Less than 2)
[2018-05-13 04:16] LABS: RBC,Urine 0-3 /hpf (0-3); Squamous Epithelial Cell,Urine 0-5 /hpf (0-5); WBC,Urine 0-5 /hpf (0-5)
[2018-05-13 04:18] LABS: Amphetamine Screen,Urine Neg (Neg); Barbiturate Screen,Urine Neg (Neg); Cannabinoid Screen,Urine Neg (Neg); Cocaine Screen,Urine Neg (Neg)
[2018-05-13 04:30] LABS: Opiate Screen,Urine Neg (Neg)
--- NOTE | 2018-05-13 10:28 | P.HPCC ---
History of Present Illness Primary Care Physician: Karan Betts Chief Complaint: Acute CVA History of Present Illness: This is a 32-year-old female who has a history of hypertension, diabetes, cardiomyopathy, SLE who presented as a stroke alert for acute onset left arm weakness. Apparently patient went to sleep at 10 p.m. and woke at 1:15 a.m. and as she was walking to the restroom, developed persistent weakness of the left upper extremity, associated with tingling sensation. Seen by Dr. Chin in the ED and CT of the head was negative for acute findings. Neurology marketing regional consultant Dr. Galloway was contacted and patient received TPA per protocol. MR brain noncontrast and MRA of carotids and brain without contrast has been ordered. I evaluated the patient in the ICU. She is lying comfortable, slightly anxious. She complains of residual weakness of the left upper extremity with tingling sensation. 4 out of 5 power on the left upper extremity. Sensation is grossly preserved - Diagnosis (1) Acute ischemic stroke (2) LUE weakness Inpatient Certification: I certify that the inpatient services were ordered in accordance with Medicare regulations governing the order. This includes certification that hospital inpatient services are reasonable and necessary and in the case of services not specified as inpatient-only under 42 CFR 419.22(n), that they are appropriately provided as inpatient services in accordance to with the 2-midnight benchmark under 43 CFR 412.3(e) Review of Systems All other systems reviewed negative except as stated in HPI PMFSH - History History Provided By: Patient - Medical History Medical History: Medical History (Last Reviewed 05/13/18 @ 14:23 by Huber Weinberg MD) Diabetes mellitus Hypertension Cardiomyopathy - Surgical History Surgical History: Surgical History (Last Reviewed 05/13/18 @ 14:23 by Huber Weinberg MD) Hx of appendectomy Hx of section Hx of gastric bypass Hx of oral surgery - Tobacco History Second Hand Smoke Exposure: Yes Tobacco Use In Past 30 Days: No Smoking Status: Never smoker - Alcohol History How Often Do You Have a Drink Containing Alcohol: 4 or more times a week - Substance Use History Substance History: No History of Abuse - Travel History Recent Travel in the [place] Within the Last 8 Weeks: No Recent Travel Out of the Country Within the Last 8 Weeks: No - Immunization History Tetanus Immunization: <5 Years Medications and Allergies Active Medications: Active Medications Sodium Chloride (Ns Inj) 1,000 mls @ 70 mls/hr IV.CONT .[id number] JOSE Last Infusion: 05/13/18 05:11 Dose: 70 mls/hr Allergies Allergy/AdvReac Type Severity Reaction Status Date / Time iodine Allergy Intermediate HIVES Verified 05/13/18 02:18 potassium iodide Allergy Intermediate HIVES Verified 05/13/18 02:18 povidone-iodine Allergy Intermediate HIVES Verified 05/13/18 02:18 sodium iodide Allergy Intermediate HIVES Verified 05/13/18 02:18 sodium iodide Allergy Intermediate HIVES Verified 05/13/18 02:18 shellfish derived AdvReac Severe Anaphylaxis Verified 05/13/18 02:18 lactose AdvReac Intermediate DIARRHEA Verified 05/13/18 02:18 Home Medications Medication Instructions Recorded Confirmed Type carvedilol 25 mg PO DAILY 05/13/18 05/13/18 History lisinopril 20 mg PO DAILY 05/13/18 05/13/18 History Results - Labs CBC & Chem 7: 05/13/18 01:49 05/13/18 01:49 Labs: Short CBC 05/13/18 Range/Units 01:49 WBC 6.1 (4.0-11.0) th/mm3 Hgb 10.9 L (11.6-15.3) gm/dL Hct 32.8 L (35.0-46.0) % Plt Count 274 D (150-450) th/mm3 BMP 05/13/18 01:49 Sodium 135 L Potassium 3.6 Chloride 100 Carbon Dioxide 23.5 BUN 11 Creatinine 0.84 Calcium 8.5 Cardiac Enzymes 05/13/18 Range/Units 01:49 Total Creatine Kinase 200 H (26-192) U/L CK-MB (CK-2) 1.2 (0.5-3.6) ng/mL Troponin I Less than 0.02 L (0.02-0.05) ng/mL Urine 05/13/18 Range/Units 03:58 Urine Color Yellow (Yellw/Straw) Urine Clarity Clear (Clear) Urine pH 6.0 (5.0-8.5) Ur Specific [place] 1.010 (1.002-1.035) Urine Protein Negative (Neg-Trace) mg/dL Urine Glucose (UA) Negative (Negative) mg/dL - Imaging Impressions Chest X-Ray 05/13/18 02:03 CONCLUSION: Negative examination. Head CT 05/13/18 02:03 CONCLUSION: 1. Negative CT Head non contrast. Report was called by [Dr. Cutler to Dr. Chin at 0218 hours ] Exam Vital signs: Vital Signs 05/13/18 02:03 05/13/18 02:23 05/13/18 04:51 Temperature 98.3 F Pulse Rate 100 H 100 H 103 H Respiratory Rate 18 18 Blood Pressure 140/76 126/75 Pulse Oximetry 97 98 98 05/13/18 05:11 05/13/18 05:39 05/13/18 05:41 Temperature 98.9 F Pulse Rate Respiratory Rate 19 Blood Pressure 129/68 129/64 Pulse Oximetry 95 05/13/18 05:45 05/13/18 06:00 05/13/18 06:11 Temperature Pulse Rate 106 H 107 H 110 H Respiratory Rate 19 17 28 H Blood Pressure 129/64 119/60 Pulse Oximetry 94 L 95 95 05/13/18 06:15 05/13/18 06:30 05/13/18 06:45 Temperature Pulse Rate 110 H 103 H 98 H Respiratory Rate 28 H 12 21 Blood Pressure 123/68 122/65 138/80 Pulse Oximetry 95 95 96 05/13/18 07:00 05/13/18 07:15 05/13/18 07:30 Temperature Pulse Rate 92 H 79 91 H Respiratory Rate 18 15 29 H Blood Pressure 124/75 123/79 125/78 Pulse Oximetry 97 98 98 05/13/18 07:45 05/13/18 08:00 05/13/18 08:15 Temperature 99.8 F H Pulse Rate 90 92 H 85 Respiratory Rate 26 H 25 H 19 Blood Pressure 127/75 130/76 125/77 Pulse Oximetry 99 100 100 05/13/18 08:30 Temperature Pulse Rate 82 Respiratory Rate 24 Blood Pressure 128/78 Pulse Oximetry 99 Intake & Output 05/12/18 05/13/18 05/13/18 18:59 06:59 18:59 Intake Total 435.5 / 435.5 Output Total 1070 / 1070 Balance -634.5 / -634.5 Weight 86.5 kg Intake: IV 435.5 / 435.5 NS Inj 1,000 ML @ 70 mls/hr IV. 118 / 118 CONT .[id number] [facility] Rx#: [id number] Activase Drip 67.5 MG In Bag/ 67.5 / 67.5 Syringe 1 EACH @ 67.5 mls/hr IV .SIG ONCE ONE Rx#:[id number] NS Inj 250 ML @ 500 mls/hr IV. 250 / 250 SIG BOLUS [facility] Rx#:[id number] Output: Urine Amount (Catheter) 1070 / 1070 Indwelling Urethral Catheter 1070 / 1070 Other: Weight On Admission 86.5 kg Narrative: GENERAL: Well-developed well-nourished female lying in ICU bed slightly anxious SKIN: Focused skin assessment warm/dry. HEAD: Atraumatic. Normocephalic. EYES: Pupils equal and round and reactive to light without field deficit. No scleral icterus. No injection or drainage. ENT: No facial droop. No facial asymmetry. No tongue deviation NECK: Trachea midline. No JVD. CARDIOVASCULAR: Regular rate and rhythm. No murmur appreciated. RESPIRATORY: No accessory muscle use. Clear to auscultation. Breath sounds equal bilaterally. GASTROINTESTINAL: Abdomen soft, non-tender, nondistended. Hepatic and splenic margins not palpable. MUSCULOSKELETAL: No obvious deformities. No clubbing. No cyanosis. No edema. NEUROLOGICAL: Awake and alert. No obvious cranial nerve deficits. Normal speech. Left upper extremity strength is 4 out of 5 normal strength all other extremities sensation grossly preserved. NIH stroke scale was 4 on arrival Septic Shock Reassessment Septic shock perfusion: reassessment completed Caprini VTE Risk Assessment Caprini VTE Risk Assessment: No/Low Risk (score <= 1) Caprini Risk Assessment Model: Point Value = 1 Point Value = 2 Point Value = 3 Point Value = 5 Age 41-60 Minor surgery BMI > 25 kg/m2 Swollen legs Varicose veins or History of unexplained or recurrent spontaneous Oral contraceptives or hormone replacement Sepsis (< 1 month) Serious lung disease, including pneumonia (< 1 month) Abnormal pulmonary function Acute myocardial infarction Congestive heart failure (< 1 month) History of inflammatory bowel disease Medical patient at bed rest Age 61-74 Arthroscopic surgery Major open surgery (> 45 min) Laparoscopic surgery (> 45 min) Malignancy Confined to bed (> 72 hours) Immobilizing plaster cast Central venous access Age >= 75 History of VTE Family history of VTE Factor V Leiden Prothrombin [id number] Lupus anticoagulant Anticardiolipin antibodies Elevated serum homocysteine Heparin-induced thrombocytopenia Other congenital or acquired thrombophilia Stroke (< 1 month) Elective arthroplasty Hip, pelvis, or leg fracture Acute spinal cord injury (< 1 month) Prophylaxis Regimen: Total Risk Factor Score Risk Level Prophylaxis Regimen 0-1 Low Early ambulation 2 Moderate Order ONE of the following: *Sequential Compression Device (SCD) *Heparin 5000 units SQ BID 3-4 Higher Order ONE of the following medications: *Heparin 5000 units SQ TID *Enoxaparin/Lovenox 40 mg SQ daily (WT < 150 kg, CrCl > 30 mL/min) *Enoxaparin/Lovenox 30 mg SQ daily (WT < 150 kg, CrCl > 10-29 mL/min) *Enoxaparin/Lovenox 30 mg SQ BID (WT < 150 kg, CrCl > 30 mL/min) AND/OR *Sequential Compression Device (SCD) 5 or more Highest Order ONE of the following medications: *Heparin 5000 units SQ TID (Preferred with Epidurals) *Enoxaparin/Lovenox 40 mg SQ daily (WT < 150 kg, CrCl > 30 mL/min) *Enoxaparin/Lovenox 30 mg SQ daily (WT < 150 kg, CrCl > 10-29 mL/min) *Enoxaparin/Lovenox 30 mg SQ BID (WT < 150 kg, CrCl > 30 mL/min) AND *Sequential Compression Device (SCD) Assessment and Plan - Problem List (1) Acute ischemic stroke Code(s): I63.9 - Cerebral infarction, unspecified Status: Acute (2) LUE weakness Code(s): R29.898 - Other symptoms and signs involving the musculoskeletal system Status: Acute - Assessment and Plan Plan: ASSESSMENT/PLAN NEURO: Acute right hemispheric stroke Left upper extremity weakness -Received TPA per protocol -No CT angiogram or intervention due to severe iodine allergy -Follow-up CT of the head in 24 hours -MRI MRA of the brain and neck pending -Neurology Dr. Galloway -Check 2D echo, B12, TSH, folic acid -Check lipid profile, start Lipitor 40 mg nightly -Hemoglobin A1c -PT/OT/speech ordered -Head of the bed flat per protocol RESP: -DuoNeb every 6 hours as needed -No respiratory insufficiency noted at this time CV: Cardiomyopathy -Permissive hypertension treat blood pressure less than 185/105 -Hold Coreg and lisinopril at this time -Check lipid profile stat Lipitor as above -2D echo ordered GI: -N.p.o., until cleared by speech. IV famotidine : -Monitor renal function closely. ID: -No Antibiotics -Monitor closely for infection HEME: -Monitor CBC, coags. Patient is status post TPA ENDO: DM-2 -Electrolyte replacement per protocol -Sliding scale insulin if needed MSK: SLE -PT/OT ordered PROPH: -Bilateral lower extremity SCDs. Chemical DVT prophylaxis contraindicated for 24 hours. IV famotidine for GI prophylaxis LINES: -Utilize peripheral IVs CC time 35 min Critically ill with acute ischemic stroke and given TPA. She is at acute risk of decompensation from worsening ischemic stroke or cerebral bleed. Continue close ICU monitoring for at least 24 more hours Code Status: Full H&P: Quality - VTE Deep Vein Thrombosis/Pulmonary Embolism Present on Admission: No
--- NOTE | 2018-05-13 11:54 | MR ---
EXAM DATE: 05/13/2018 11:43 AM EST AGE/SEX: 32 years / Female INDICATIONS: CVA. CLINICAL DATA: This is the patient's initial encounter. Patient reports that signs and symptoms have been present for 2 days and indicates a pain score of 0/10. MEDICAL/SURGICAL HISTORY: Diabetes mellitus type II. Hypertension. section. Gastric bypass. Appendectomy. COMPARISON: No prior exams available for comparison. TECHNIQUE: 3D [id number] MRA was performed. Source images, multiplanar STS MIP, and 3D volum e MIP reconstructions were reviewed. FINDINGS: There is excellent visualization of the major intracranial arteries out to the second-order branch ve ssels. There is no evidence for aneurysm, vessel truncation or stenosis, and no evidence for vascula r malformation. There is a patent posterior communicating artery. CONCLUSION: 1. Unremarkable MRA of the brain. Electronically signed by: Cy Diana MD 05/13/2018 11:52 AM EST
[2018-05-13] MEDS ORDERED: Gadobutrol PF 10 MMOL/10 ML Vial (for RAD) IV.SIG ONE (12:01)
[2018-05-13] MEDS ORDERED: Morphine Sulfate Inj 2 MG/ML Vial IM PRN (12:14)
--- NOTE | 2018-05-13 12:20 | MR ---
EXAM DATE: 05/13/2018 12:11 PM EST AGE/SEX: 32 years / Female INDICATIONS: CVA. Numbness left side. CLINICAL DATA: This is the patient's initial encounter. Patient reports that signs and symptoms have been present for 2 days and indicates a pain score of 0/10. MEDICAL/SURGICAL HISTORY: Diabetes mellitus type II. Hypertension. Gastric bypass. Appendecto my. Tubal ligation. COMPARISON: [facility], CT HEAD W/O CONTRAST, 05/13/2018. . TECHNIQUE: Multiplanar, multisequence examination of the brain was performed without and with 10 ml G adavist (gadobutrol) contrast as a single exam dose. FINDINGS: Cerebrum: The ventricles are normal for age. No evidence of midline shift, mass lesion, hemorrhage or acute infarction. No extraaxial fluid collections are seen. The pituitary gland and suprasellar cistern are normal in configuration. White Matter: No significant signal abnormalities are seen in the white matter. Posterior Fossa: The cerebellum and brainstem are intact. The 4th ventricle is midline. The cerebel lopontine angle is unremarkable. The cerebellar tonsils are normal in position. Diffusion Imaging: No focal areas of restricted diffusion are seen. No evidence of acute infarction . Extracranial: The visualized portions of the orbits and paranasal sinuses are unremarkable. Post Contrast: No abnormal areas of parenchymal or dural enhancement. No evidence of blood-brain ba rrier breakdown. CONCLUSION: 1. Unremarkable MRI of the brain. Electronically signed by: Cy Diana MD 05/13/2018 12:19 PM EST
--- NOTE | 2018-05-13 12:22 | MR ---
EXAM DATE: 05/13/2018 12:11 PM EST AGE/SEX: 32 years / Female INDICATIONS: Stroke. Left sided numbness. CLINICAL DATA: This is the patient's initial encounter. Patient reports that signs and symptoms have been present for 2 days and indicates a pain score of 0/10. MEDICAL/SURGICAL HISTORY: Diabetes mellitus type II. Hypertension. Gastric bypass. Appendecto my. section. COMPARISON: No prior exams available for comparison. TECHNIQUE: 10 ml Gadavist (gadobutrol) contrast infused MRA (single exam dose) of the extracranial circulation was performed using a neurovascular coil. Postprocessing was performed, including rotati ng sub-volume maximum intensity projections of each carotid artery, rotating full-volume maximum inte nsity projections of both carotid arteries, sagittal and coronal sliding thin-slab reformations of ea ch carotid artery, and left oblique sliding thin-slab reformation through the aortic arch to include the origin of the arch branch vessels. FINDINGS: Aortic Arch : There is a three-vessel origin of the great vessels from the aorta. No evidence of o stial narrowing. Right Carotid : The common carotid artery is intact. The carotid bulb has a normal configuration wi thout ulceration or narrowing. The internal carotid artery lumen is smooth without stenosis. The ex ternal carotid artery is intact. Left Carotid : The common carotid artery is intact. The carotid bulb has a normal configuration wit hout ulceration or narrowing. The internal carotid artery lumen is smooth without stenosis. The ext ernal carotid artery is intact. Vertebrals : The vertebral arteries have a symmetric diameter. No stenotic lesions are seen. CONCLUSION: 1. Unremarkable MRA of the carotids. Percent stenosis is calculated using the diameter of the stenotic region over the diameter of the nor mal distal internal carotid artery Electronically signed by: Cy Diana MD 05/13/2018 12:20 PM EST
[2018-05-13 18:21] LABS: Chol/HDL Ratio 1.77 Ratio; HDL Cholesterol 107.5 mg/dL (40.0-60.0); Thyroid Stimulating Hormone 3.63 uIU/mL (0.358-3.740)
--- NOTE | 2018-05-13 20:08 | ECG ---
Date Performed: 05/13/2018 Time Performed: 02:24:35 PTAGE: 32 years EKG: SINUS TACHYCARDIA ABNORMAL RHYTHM ECG PREVIOUS TRACING : 04/18/2018 16.49 Since the previous tracing, no significant change noted DOCTOR: Tamra Judd Interpretating Date/Time 05/13/2018 20:01:46
[2018-05-13 20:11] LABS: Hemoglobin A1c 5.1 % (4.3-6.0)
--- NOTE | 2018-05-13 20:54 | ECHRPT ---
Indication: CVA/TIA CONCLUSIONS Normal left ventricular size. Wall thickness is normal. The left ventricular systolic function is normal with an estimated ejection fraction in the range of 60-65%. No regional wall motion abnormalities are present. There is trace tricuspid valve regurgitation. The estimated pulmonary arterial pressure is 26 mmHg. BP: / HR: Rhythm: MEASUREMENTS (Male / Female) Normal Values Technical Quality: 2D ECHO LV Diastolic Diameter PLAX 5.4 cm 4.2 - 5.9 / 3.9 - 5.3 cm LV Systolic Diameter PLAX 3.9 cm IVS Diastolic Thickness 0.7 cm 0.6 - 1.0 / 0.6 - 0.9 cm LVPW Diastolic Thickness 0.8 cm 0.6 - 1.0 / 0.6 - 0.9 cm LV Relative Wall Thickness 0.3 RV Internal Dim ED PLAX 2.8 cm LVOT Diameter 2.3 cm Aortic Root Diameter 3.0 cm LA Systolic Diameter LX 3.6 cm 3.0 - 4.0 / 2.7 - 3.8 cm M-MODE AV Cusp Separation MM 2.2 cm DOPPLER AV Peak Velocity 132.0 cm/s AV Peak Gradient 7.0 mmHg AV Mean Gradient 4.0 mmHg AV Velocity Time Integral 27.8 cm LVOT Peak Velocity 70.7 cm/s LVOT Peak Gradient 2.0 mmHg LVOT Velocity Time Integral 14.5 cm AV Area Cont Eq vti 2.2 cm AV Area Cont Eq pk 2.2 cm Mitral E Point Velocity 80.5 cm/s Mitral A Point Velocity 61.2 cm/s Mitral E to A Ratio 1.3 LV E' Lateral Velocity 17.2 cm/s Mitral E to LV E' Lateral Ratio 4.7 LV E' Septal Velocity 10.9 cm/s Mitral E to LV E' Septal Ratio 7.4 TR Peak Velocity 200.0 cm/s TR Peak Gradient 16.0 mmHg Right Atrial Pressure 10.0 mmHg Pulmonary Artery Systolic Pressu 26.0 mmHg Right Ventricular Systolic Press 26.0 mmHg PV Peak Velocity 103.0 cm/s PV Peak Gradient 4.2 mmHg FINDINGS LEFT VENTRICLE Normal left ventricular size. Wall thickness is normal. The left ventricular systolic function is normal with an estimated ejection fraction in the range of 60-65%. No regional wall motion abnormalities are present. RIGHT VENTRICLE Normal right ventricular size and systolic function. LEFT ATRIUM The left atrial size is normal. RIGHT ATRIUM The right atrial size is normal. ATRIAL SEPTUM No atrial level shunt is demonstrated by color flow Doppler interrogation. AORTA The aortic root and proximal ascending aorta are normal in size on limited imaging. MITRAL VALVE Trace mitral valve regurgitation. AORTIC VALVE Trileaflet aortic valve. No aortic valve stenosis or regurgitation. TRICUSPID VALVE There is trace tricuspid valve regurgitation. The estimated pulmonary arterial pressure is 26 mmHg. PULMONARY VALVE No pulmonary valve regurgitation or stenosis. VESSELS The inferior vena cava is normal in size. PERICARDIUM No pericardial effusion. Doron Taylor MD (Electronically Signed) Final Date:13 May 2018 20:52
--- NOTE | 2018-05-13 21:05 | MB ---
cc: William Galloway MD, PhD DATE: 05/13/2018 REASON FOR CONSULTATION: Stroke. HISTORY OF PRESENT ILLNESS: This is a pleasant 32-year-old female with a history of cardiomyopathy, lupus, diabetes and hypertension, who presented to [facility] earlier this morning as a stroke alert and was evaluated by myself by [facility] at that time. NIH stroke scale was 4. Her symptoms began shortly after 1:15 in the morning while she is walking to the restroom. Initial CT of the brain was negative. It was felt that she was a candidate for tPA. After explaining risks and benefits, the patient agreed to tPA and that has been administered. She was transferred here to the [facility] for further monitoring. She has noticed improvement in her left arm strength, but still is weak. She has never had a stroke in the past. PAST MEDICAL HISTORY: She has a history of diabetes, hypertension, cardiomyopathy, lupus, gastric bypass, appendectomy. CURRENT MEDICATIONS: 1. DuoNeb. 2. Lipitor. 3. Chlorhexidine. 4. Pepcid. 5. Morphine p.r.n. 6. Ambien p.r.n. She does not take any antiplatelets or anticoagulants as an outpatient. NEUROLOGICAL EXAMINATION: VITAL SIGNS: Blood pressure is 121/59. Pulse is 103. She is in sinus rhythm. Respirations are 26. Temperature is 99.2 degrees Fahrenheit. HIGHER CORTICAL FUNCTION: Normal. CRANIAL NERVES: 2-12 are normal. MOTOR: She is weak proximally in the left arm, rated at 2/5. The biceps are 3/5, triceps 3/5, interossei on the left 4/5. She has normal strength in the left leg. SENSORY: Intact. REFLEXES: Symmetric. IMAGING STUDIES: Initial CT of the brain was unremarkable. She has a SEVERE ALLERGY TO CONTRAST. Therefore, I did not proceed with a CTA. She has since had an MRI of the brain which is normal. She has had also an MRA of the brain which is unremarkable. MRA of the neck is unremarkable. LABORATORY DATA: White count 6100, hemoglobin 10.9, hematocrit 32%, platelet count 274,000. PT 10.2, INR 1, aPTT 27.7. Sodium 135, potassium 3.6, chloride 100, CO2 of 23.5, BUN 11, creatinine 0.84, glucose 114. IMPRESSION: Probable stroke, status post tPA. However, MRI brain does not reveal infarction. Her weakness is only in 1 limb. Therefore, I would like to get an MRI of the cervical spine to rule out other potential causes of weakness. We will check a post-tPA CT scan 24 hours after the tPA was administered as well. Continue to avoid any antiplatelets or anticoagulation for 24 hours post tPA. We will get an echocardiogram as well. Also, consider additional labs to rule out hypercoagulable state including lupus anticoagulant. William Galloway MD, PhD TERESA/shanika , 06:47 PM , 06:56 PM
[2018-05-13] MEDS: Famotidine PF Inj 20 MG/2 ML Vial IV.PUSH SCH (21:37)
[2018-05-14] MEDS ORDERED: Chlorhexidine Gluconate 2% 1 Pack (2 Cloths) TOPICAL PRN (04:00)
[2018-05-14] MEDS: Chlorhexidine Gluconate 2% 1 Pack (2 Cloths) TOPICAL SCH (04:37)
--- NOTE | 2018-05-14 05:45 | CT ---
EXAM DATE: 05/14/2018 5:11 AM EST AGE/SEX: 32 years / Female INDICATIONS: Follow up stroke. CLINICAL DATA: This is the patient's subsequent encounter. Patient reports that signs and symptoms h ave been present for 1 day and indicates a pain score of 0/10. MEDICAL/SURGICAL HISTORY: Cardiovascular disease. Hypertension. Diabetes mellitus type II. None. RADIATION DOSE: 56.35 CTDI (mGy) COMPARISON: [facility], CT HEAD W/O CONTRAST, 05/13/2018. . TECHNIQUE: CT of the head without contrast. Using automated exposure control and adjustment of the mA and/or kV according to patient size, radiation dose was kept as low as reasonably achievable to ob tain optimal diagnostic quality images. DICOM format image data is available electronically for revi ew and comparison. FINDINGS: Cerebrum: The ventricles are normal for age. No evidence of midline shift, mass lesion, hemorrhage or acute infarction. No extraaxial fluid collections are seen. Posterior Fossa: The cerebellum and brainstem are intact. The 4th ventricle is midline. The cerebe llopontine angle is unremarkable. Extracranial: The visualized portion of the orbits is intact. Skull: The calvaria is intact. No evidence of skull fracture. CONCLUSION: 1. Negative CT Head non contrast. . Electronically signed by: Jah Cutler MD 05/14/2018 5:43 AM EST
[2018-05-14] MEDS: Famotidine PF Inj 20 MG/2 ML Vial IV.PUSH SCH ×2 (08:22→21:32)
[2018-05-14] MEDS: Morphine Sulfate Inj 2 MG/ML Vial IV.PUSH PRN (08:22)
[2018-05-14] MEDS: Sod Chloride 0.9% Inj 1,000 ML IV.CONT SCH (10:31)
--- NOTE | 2018-05-14 11:31 | P.PNIM ---
Subjective Interval history: Patient reports she is feeling okay today. No new neurological symptoms. She is still having issues with the left arm, cannot abduct the left arm. No problems making a fist on the left hand. Physical Exam Vital signs: Vital Signs 05/13/18 12:02 05/13/18 12:30 05/13/18 13:00 Temperature 99.5 F Pulse Rate 79 87 99 H Respiratory Rate 31 H 19 Blood Pressure 137/78 130/82 131/65 Pulse Oximetry 99 100 100 05/13/18 13:30 05/13/18 14:00 05/13/18 14:30 Temperature Pulse Rate 93 H 78 102 H Respiratory Rate 24 25 H 36 H Blood Pressure 127/73 125/74 129/67 Pulse Oximetry 99 100 100 05/13/18 15:00 05/13/18 15:28 05/13/18 15:30 Temperature Pulse Rate 93 H 89 88 Respiratory Rate 24 26 H 22 Blood Pressure 126/66 117/70 117/69 Pulse Oximetry 98 98 97 05/13/18 16:00 05/13/18 17:00 05/13/18 17:39 Temperature 99.2 F Pulse Rate 86 93 H 88 Respiratory Rate 22 37 H 35 H Blood Pressure 121/71 142/82 H 135/73 Pulse Oximetry 96 100 100 05/13/18 18:00 05/13/18 18:09 05/13/18 18:34 Temperature Pulse Rate 104 H 103 H 112 H Respiratory Rate 40 H 26 H 33 H Blood Pressure 121/59 L 130/67 Pulse Oximetry 100 100 100 05/13/18 19:00 05/13/18 20:00 05/13/18 20:58 Temperature 98.5 F Pulse Rate 106 H 101 H Respiratory Rate 24 32 H Blood Pressure 137/77 129/63 Pulse Oximetry 100 99 99 05/13/18 21:00 05/13/18 22:00 05/13/18 23:00 Temperature Pulse Rate 85 82 80 Respiratory Rate 23 24 19 Blood Pressure 131/68 121/74 148/69 H Pulse Oximetry 98 99 98 05/14/18 00:00 05/14/18 01:00 05/14/18 02:00 Temperature 98.5 F Pulse Rate 87 84 100 H Respiratory Rate 27 H 15 39 H Blood Pressure 125/86 118/60 126/83 Pulse Oximetry 99 98 84 L 05/14/18 03:00 05/14/18 04:00 05/14/18 04:37 Temperature 98.5 F Pulse Rate 66 85 Respiratory Rate 14 25 H 18 Blood Pressure 135/73 152/75 H Pulse Oximetry 99 100 05/14/18 05:00 05/14/18 05:54 05/14/18 06:00 Temperature Pulse Rate 76 81 Respiratory Rate 20 24 Blood Pressure 130/71 130/71 144/64 H Pulse Oximetry 100 100 05/14/18 07:00 05/14/18 08:00 05/14/18 09:00 Temperature 98.8 F Pulse Rate 67 68 86 Respiratory Rate 18 19 21 Blood Pressure 125/70 136/70 137/68 Pulse Oximetry 99 98 99 05/14/18 10:11 Temperature Pulse Rate 88 Respiratory Rate 14 Blood Pressure Pulse Oximetry Intake & Output 05/13/18 05/14/18 05/14/18 18:59 06:59 18:59 Intake Total 400 / 400 100 / 100 Output Total 2150 / 2150 800 / 800 Balance -1750 / -1750 -700 / -700 Weight 85.3 kg Intake: IV 100 / 100 NS Inj 1,000 ML @ 70 mls/hr IV. 100 / 100 CONT .[id number] JOSE Rx#: [id number] Oral 400 / 400 Output: Urine Amount (Catheter) 2150 / 2150 800 / 800 Indwelling Urethral Catheter 2150 / 2150 800 / 800 Other: # Bowel Movements 0 Narrative: GENERAL: This is a well-nourished, well-developed patient, in no apparent distress. CARDIOVASCULAR: Normal rate and regular rhythm without murmurs, gallops, or rubs. RESPIRATORY: Good respiratory efforts. Breath sounds equal and clear to auscultation bilaterally. GASTROINTESTINAL: Abdomen soft, non-tender, non-distended. Normal active bowel sounds MUSCULOSKELETAL: Extremities without cyanosis, or edema. NEURO: Alert & Oriented x4 to person, place, time, situation. Left shoulder abduction is impaired about 3 out of 5 strength. Risks of the major muscle groups 5 out of 5. No facial droop. PSYCH: Appropriate mood and affect. - Urinary Catheter Management Indwelling Urethral Catheter Cath placed during this visit: yes Reason for continuing: Not indwelling catheter Insertion date: 05/13/18 Insertion time: 02:10 Results - Labs CBC & Chem 7: 05/13/18 01:49 05/13/18 01:49 Laboratory Results - last 24 hr 05/13/18 05/13/18 05/13/18 01:49 06:00 17:39 Hemoglobin A1c 5.1 Triglycerides 68 Cholesterol 191 LDL Cholesterol, Calc 70 HDL Cholesterol 107.5 H Cholesterol/HDL Ratio 1.77 Vitamin B12 387 Folate 5.0 TSH 3.630 Nasal Screen MRSA (PCR) Not detected - Imaging Impressions Head MRI 05/13/18 00:00 CONCLUSION: 1. Unremarkable MRI of the brain. Head MRA 05/13/18 00:00 CONCLUSION: 1. Unremarkable MRA of the brain. Neck MRA 05/13/18 00:00 CONCLUSION: 1. Unremarkable MRA of the carotids. Percent stenosis is calculated using the diameter of the stenotic region over the diameter of the normal distal internal carotid artery Head CT 05/14/18 02:26 CONCLUSION: 1. Negative CT Head non contrast. . Assessment and Plan - Plan 32-year-old female with: Acute right hemispheric stroke Left upper extremity weakness -Received TPA per protocol -No CT angiogram or intervention due to severe iodine allergy -Follow-up CT of the head negative -MRI MRA of the brain and neck negative -Appreciate input from neurology Dr. Galloway -2D echo shows preserved LVEF. Normal TSH, B12, and folic acid. -Lipid profile unremarkable. May discontinue statin. -Hemoglobin A1c normal -Continue PT effort. -MRI of the cervical spine per neurology. History of cardiomyopathy -Initially with permissive hypertension -Continue to hold Coreg and lisinopril at this time -2D echo showed preserved LVEF. Since blood pressure is currently normal without medications, continue to hold today and resume when BP can tolerate. DM-2 -Sliding scale insulin if needed SLE -PT/OT ordered PROPH: -Bilateral lower extremity SCDs. Chemical DVT prophylaxis contraindicated for 24 hours. Famotidine for GI prophylaxis Discharge Planning: Okay to transfer to medical floor. PT to evaluate. MRI pending.
--- NOTE | 2018-05-14 15:47 | MR ---
EXAM DATE: 05/14/2018 3:39 PM EST AGE/SEX: 32 years / Female INDICATIONS: . Numbness and tingling left extremities. CLINICAL DATA: This is the patient's initial encounter. Patient reports that signs and symptoms have been present for 2 days and indicates a pain score of 0/10. MEDICAL/SURGICAL HISTORY: Diabetes mellitus type II. Hypertension. Gastric bypass. Appendecto my. Tubal ligation. COMPARISON: [facility], MRA NECK W CONTRAST, 05/13/2018. . TECHNIQUE: Multiplanar, multisequence MRI examination of the cervical spine was performed without co ntrast. FINDINGS: Sagittal images demonstrate normal vertebral body alignment and curvature. No focal areas of marrow r eplacement are identified. The craniocervical junction appears normal. The cord itself is normal in c aliber and signal intensity. Axial images were performed from C2-3 through C7-T1. There is decreased signal intensity in the disc compatible with desiccation at 3-C4, C4-C5 and C5-C6. C2-C3: No significant abnormalities identified. C3-C4: No significant abnormalities identified. C4-C5: No significant abnormalities identified. C5-C6: No significant abnormalities identified. C6-C7: No significant abnormalities identified. C7-T1: No significant abnormalities identified. CONCLUSION: No evidence of disc protrusion or spinal canal stenosis. Electronically signed by: Miguel Rios MD 05/14/2018 3:46 PM EST
--- NOTE | 2018-05-14 19:34 | P.PNNEU ---
Subjective Subjective Comments: No new sx. She reports improvement in lue movement. Active Medications: Active Medications Albuterol (Duoneb Neb (Prn)) 1 ampul NEB Q2HR NEB PRN PRN Reason: WHEEZING Aspirin (Aspirin) 325 mg PO DAILY [facility] Chlorhexidine Gluconate (Chlorhexidine 2% Cloth) 3 pack TOPICAL DAILY@0400 JOSE Stop: 05/19/18 03:59 Last Admin: 05/14/18 04:37 Dose: 3 pack Chlorhexidine Gluconate (Chlorhexidine 2% Cloth) 3 pack TOPICAL DAILY@0400 PRN PRN Reason: Extra cloth needed Stop: 05/19/18 03:59 Famotidine (Pepcid Pf Inj) 20 mg IV.PUSH Q12HR [facility] Last Admin: 05/14/18 08:22 Dose: 20 mg Morphine Sulfate (Morphine Inj) 1 mg IV.PUSH Q4H PRN PRN Reason: PAIN SCALE 5-10 Last Admin: 05/14/18 08:22 Dose: 1 mg Sodium Chloride (Ns Flush) 2 ml IV.FLUSH BID [facility] Last Admin: 05/14/18 08:22 Dose: 2 ml Zolpidem Tartrate (Ambien) 10 mg PO HS PRN PRN Reason: INSOMNIA Last Admin: 05/13/18 21:37 Dose: 10 mg Allergies/Adverse Reactions: Allergies Allergy/AdvReac Type Severity Reaction Status Date / Time iodine Allergy Intermediate HIVES Verified 05/13/18 02:18 potassium iodide Allergy Intermediate HIVES Verified 05/13/18 02:18 povidone-iodine Allergy Intermediate HIVES Verified 05/13/18 02:18 sodium iodide Allergy Intermediate HIVES Verified 05/13/18 02:18 sodium iodide Allergy Intermediate HIVES Verified 05/13/18 02:18 shellfish derived AdvReac Severe Anaphylaxis Verified 05/13/18 02:18 lactose AdvReac Intermediate DIARRHEA Verified 05/13/18 02:18 Physical Exam Vital signs: Vital Signs 05/13/18 20:00 05/13/18 20:58 05/13/18 21:00 Temperature 98.5 F Pulse Rate 101 H 85 Respiratory Rate 32 H 23 Blood Pressure 129/63 131/68 Pulse Oximetry 99 99 98 05/13/18 22:00 05/13/18 23:00 05/14/18 00:00 Temperature 98.5 F Pulse Rate 82 80 87 Respiratory Rate 24 19 27 H Blood Pressure 121/74 148/69 H 125/86 Pulse Oximetry 99 98 99 05/14/18 01:00 05/14/18 02:00 05/14/18 03:00 Temperature Pulse Rate 84 100 H 66 Respiratory Rate 15 39 H 14 Blood Pressure 118/60 126/83 135/73 Pulse Oximetry 98 84 L 99 05/14/18 04:00 05/14/18 04:37 05/14/18 05:00 Temperature 98.5 F Pulse Rate 85 76 Respiratory Rate 25 H 18 20 Blood Pressure 152/75 H 130/71 Pulse Oximetry 100 100 05/14/18 05:54 05/14/18 06:00 05/14/18 07:00 Temperature Pulse Rate 81 67 Respiratory Rate 24 18 Blood Pressure 130/71 144/64 H 125/70 Pulse Oximetry 100 99 05/14/18 08:00 05/14/18 09:00 05/14/18 10:11 Temperature 98.8 F Pulse Rate 68 86 88 Respiratory Rate 19 21 14 Blood Pressure 136/70 137/68 Pulse Oximetry 98 99 05/14/18 11:00 05/14/18 12:00 05/14/18 13:00 Temperature 99.1 F Pulse Rate 64 62 88 Respiratory Rate 34 H 25 H 27 H Blood Pressure 111/74 123/71 122/72 Pulse Oximetry 05/14/18 14:09 05/14/18 14:22 05/14/18 15:56 Temperature Pulse Rate 106 H 77 90 Respiratory Rate 24 26 H 18 Blood Pressure 148/65 H 125/71 Pulse Oximetry 05/14/18 16:00 05/14/18 16:03 05/14/18 17:00 Temperature 99.1 F Pulse Rate 79 80 89 Respiratory Rate 19 18 18 Blood Pressure 126/72 Pulse Oximetry 97 97 99 05/14/18 18:00 05/14/18 18:03 Temperature Pulse Rate 72 75 Respiratory Rate 18 24 Blood Pressure 124/95 H Pulse Oximetry 100 99 Intake & Output 05/14/18 05/14/18 05/15/18 06:59 18:59 06:59 Intake Total 100 / 100 750 / 750 Output Total 800 / 800 Balance -700 / -700 750 / 750 Weight 85.3 kg Intake: IV 100 / 100 NS Inj 1,000 ML @ 70 mls/hr IV. 100 / 100 CONT .[id number] JOSE Rx#: [id number] Oral 750 / 750 Output: Urine Amount (Catheter) 800 / 800 Indwelling Urethral Catheter 800 / 800 Other: # Voids 4 - Routine Neurological Exam alert, speech normal CN intact MOTOR 4/5 LUE proximal and distal. 5/5 LLE - Urinary Catheter Management Indwelling Urethral Catheter Cath placed during this visit: yes Reason for continuing: Not indwelling catheter Insertion date: 05/13/18 Insertion time: 02:10 Objective Radiology Results: MRI cervical spine normal CT brain 24 hr post TPA normal Laboratory Results - last 24 hr 05/13/18 01:49 Hemoglobin A1c 5.1 Review/Management - Review/Management Plan: No evidence for cva on brain mri. No evidence for cervical myelopathyh. Possible TIA , but sx still present WIll start ass. check labs for hypercoagulable state. cardiology to consider BERTO
[2018-05-14] MEDS: Aspirin 325 MG Tablet PO SCH (21:31)
[2018-05-15] MEDS: Morphine Sulfate Inj 2 MG/ML Vial IV.PUSH PRN (05:04)
[2018-05-15] MEDS: Chlorhexidine Gluconate 2% 1 Pack (2 Cloths) TOPICAL SCH (05:05)
[2018-05-15] MEDS: Famotidine PF Inj 20 MG/2 ML Vial IV.PUSH SCH (08:14)
[2018-05-15] MEDS: Aspirin 325 MG Tablet PO SCH (08:15)
--- NOTE | 2018-05-15 13:49 | P.PNIM ---
Subjective Interval history: Patient reports left upper extremity weakness is slightly improved. No other neurological issues. Physical Exam Vital signs: Last Vital Signs Temp 98.1 F 05/15/18 12:00 Pulse 80 05/15/18 12:00 Resp 36 H 05/15/18 12:00 BP 126/72 05/15/18 08:08 Pulse Ox 100 05/15/18 12:00 Intake & Output 05/13/18 05/14/18 05/15/18 05/16/18 06:59 06:59 06:59 06:59 Intake Total 435.5 / 435.5 500 / 500 1750 / 1750 Output Total 1070 / 1070 2950 / 2950 Balance -634.5 / -634.5 -2450 / -2450 1750 / 1750 Weight 86.5 kg 85.3 kg 89.1 kg Narrative: GENERAL: This is a well-nourished, well-developed patient, in no apparent distress. CARDIOVASCULAR: Normal rate and regular rhythm without murmurs, gallops, or rubs. RESPIRATORY: Good respiratory efforts. Breath sounds equal and clear to auscultation bilaterally. GASTROINTESTINAL: Abdomen soft, non-tender, non-distended. Normal active bowel sounds MUSCULOSKELETAL: Extremities without cyanosis, or edema. NEURO: Alert & Oriented x4 to person, place, time, situation. Left shoulder abduction is impaired about 3 out of 5 strength. Risks of the major muscle groups 5 out of 5. No facial droop. PSYCH: Appropriate mood and affect. Urinary Catheter Management Indwelling Urethral Catheter: Cath placed during this visit: yes Urethral indwelling: No Insertion date: 05/13/18 Insertion time: 02:10 Results Labs CBC & Chem 7: 05/13/18 01:49 05/13/18 01:49 Imaging Imaging: Impressions Cervical Spine MRI 05/14/18 07:10 CONCLUSION: No evidence of disc protrusion or spinal canal stenosis. Assessment and Plan (1) Acute ischemic stroke: Code(s): I63.9 - Cerebral infarction, unspecified Status: Acute (2) LUE weakness: Code(s): R29.898 - Other symptoms and signs involving the musculoskeletal system Status: Acute Plan 32-year-old female with: Acute right hemispheric stroke Left upper extremity weakness -Received TPA per protocol -No CT angiogram or intervention due to severe iodine allergy -Follow-up CT of the head negative -MRI MRA of the brain and neck negative -Appreciate input from neurology Dr. Galloway -2D echo shows preserved LVEF. Normal TSH, B12, and folic acid. -Lipid profile unremarkable. Statin discontinued. -Hemoglobin A1c normal -Continue PT effort. -MRI of the cervical spine negative. - Cardiology consulted for BERTO. History of cardiomyopathy -Initially with permissive hypertension -Blood pressure have remained normal. The patient's home dose Coreg and lisinopril has been on hold. Continue to hold blood pressure medication as we want to avoid hypotension. -2D echo showed preserved LVEF. DM-2 -Sliding scale insulin if needed SLE -PT/OT ordered PROPH: -Bilateral lower extremity SCDs. Chemical DVT prophylaxis contraindicated for 24 hours. Famotidine for GI prophylaxis Discharge Planning: Okay to transfer to medical floor. BERTO pending. Progress Note: Quality VTE Deep Vein Thrombosis/Pulmonary Embolism Present on Admission: No
[2018-05-15 14:12] LABS: Bacteria,Urine Many /hpf; Bilirubin,Urine Negative (Negative); Clarity,Urine Hazy (Clear); Color,Urine Yellow (Yellw/Straw); Glucose,Urine (UA) Negative (Negative); Leukocyte Esterase,Urine Small (Negative); Mucus,Urine Few /lpf (Occasional); Nitrite,Urine Positive (Negative); Specific Gravity,Urine 1.013 (1.002-1.035); Squamous Epithelial Cell,Urine <1 /hpf (0-5); Urobilinogen,Urine 4 or Greater mg/dL (Less than 2)
--- NOTE | 2018-05-15 14:18 | MB ---
cc: Doron Taylor MD DATE: 05/15/2018 REASON FOR CONSULTATION: Consider transesophageal echocardiography. HISTORY OF PRESENT ILLNESS: The patient is a 32-year-old female with a history of hypertension, diabetes, dumping syndrome, resolved nonischemic cardiomyopathy, who presented to the hospital with left-sided weakness, particularly her left upper extremity. Cerebral imaging by MRI and CT has revealed no definite evidence for acute CVA. The patient denies palpitations, syncope, near syncope. Infrequently, she experiences minimal transient lightheadedness. Rarely she experiences sharp substernal chest pains, most often when emotionally stressed or fatigued at the end of the day. She denies pedal edema, paroxysmal nocturnal dyspnea, shortness of breath. PAST MEDICAL HISTORY: 1. Hypertension. 2. Dumping syndrome. 3. Resolved nonischemic cardiomyopathy, apparently a peripartum cardiomyopathy. Her ejection fraction was 45% on an echo in 2009 and 60%-65% on echo this admission. 4. Diabetes. PAST SURGICAL HISTORY: 1. section. 2. Appendectomy. 3. Tubal ligation. 4. Laparoscopic gastric bypass 2011. CARDIAC MEDICATIONS AT HOME: 1. Lisinopril 20 mg daily. 2. Carvedilol 25 mg daily. ALLERGIES: IODINE AND LACTOSE. FAMILY HISTORY: There is no significant family history of early myocardial infarction. Her mother did undergo cardiac transplantation at age 54 for nonischemic cardiomyopathy. SOCIAL HISTORY: The patient denies any history of alcohol or tobacco abuse. REVIEW OF SYSTEMS: As in the history of present illness, otherwise negative or noncontributory. She admits to occasional headaches. She denies dyspepsia, bright red blood per rectum, melena, fevers. PHYSICAL EXAMINATION: VITAL SIGNS: Her blood pressure 126/72 with a pulse of 80, respirations 20. GENERAL: She is a well-developed, well-nourished female in no acute distress. NECK: Jugular venous pressure is normal. Carotid pulses are 2+ bilaterally and without bruits. CHEST: Reveals clear lungs [place]. CARDIAC: She has a regular rhythm and rate without S3, S4, or murmur. ABDOMEN: She has a soft, nontender abdomen. Bowel sounds are present. There is no definite hepatosplenomegaly. EXTREMITIES: Reveal no clubbing, cyanosis or edema. LABORATORY DATA: EKG from 05/13/2018 shows sinus tachycardia, otherwise normal EKG. Chest x-ray shows no acute disease. LABORATORY DATA: Includes hemoglobin 10.9, WBC 6.1, platelets 274. Potassium of 3.6, BUN 11, creatinine 0.84, total cholesterol 191, LDL 70, HDL 107, triglycerides 68. IMPRESSION: 32-year-old female with a history of diabetes, hypertension, resolved peripartum cardiomyopathy, admitted with acute left-sided neurological symptoms. I have been asked to see the patient for possible transesophageal echocardiography. Her transthoracic echo has been reviewed. The images are excellent, and the echo is normal. RECOMMENDATIONS: As her transthoracic images are superb and optimal, would not recommend a transesophageal echo at this time. We did do a saline contrast study today demonstrating no evidence for intracardiac shunting. MD BETY Pina/charlene , 01:58 PM , 02:06 PM HANY
--- NOTE | 2018-05-15 15:33 | P.DS ---
DS: Providers Date of admission: 05/13/18 03:57 Primary care physician: Karan Betts Consults: 05/13/18 02:03 Consult to Neurology Stat Consulting Provider: William Galloway For STAT consult, spoke directly to:: luis Reason for Consultation: Brain Attack Spoke with:: [facility] ed verified dr ana cantu Date Notified:: 05/13/18 Time Notified:: 03:03 Ordering Provider: CLARICE 05/13/18 10:54 Consult to Hospitalist Routine Consulting Provider: Jerrica Danielson Reason for Consultation: Assume care in am 05/14/18 Notified:: Service Spoke with:: ERWIN Date Notified:: 05/13/18 Time Notified:: 10:57 Comments:: Ordering Provider: MICHEAL 05/14/18 19:30 Consult to Cardiology Routine Consulting Provider: Yuna Marcelo Does the patient have a Preparation Room Worker who follows them?: No Preferred Kitchen Steward:: Program Development Manager Physician Reason for Consultation: consider BERTO Notified:: Service Spoke with:: Roxana Date Notified:: 05/14/18 Time Notified:: 20:08 Ordering Provider: NAUN Brief History from admission: This is a 32-year-old female who has a history of hypertension, diabetes, cardiomyopathy, SLE who presented as a stroke alert for acute onset left arm weakness. Apparently patient went to sleep at 10 p.m. and woke at 1:15 a.m. and as she was walking to the restroom, developed persistent weakness of the left upper extremity, associated with tingling sensation. Seen by Dr. Chin in the ED and CT of the head was negative for acute findings. Neurology community health consultant Dr. Galloway was contacted and patient received TPA per protocol. MR brain noncontrast and MRA of carotids and brain without contrast has been ordered. I evaluated the patient in the ICU. She is lying comfortable, slightly anxious. She complains of residual weakness of the left upper extremity with tingling sensation. 4 out of 5 power on the left upper extremity. Sensation is grossly preserved DS: Diagnosis Discharge Diagnosis (1) Acute ischemic stroke: Status: Acute (2) LUE weakness: Status: Acute DS: Summary Time Spent with Patient Total time spent providing and/or coordinating discharge services: Quality: Stroke Last date observed well: 05/13/18 Last time observed well: 01:15 Quality: VTE Deep Vein Thrombosis/Pulmonary Embolism Present on Admission: No Results Labs on day of discharge: Labs from last 24 hours 05/15/18 05/15/18 05/15/18 13:45 05:42 05:42 Lupus Anticoagulant Pending LA PTT Screen Pending dRVVT Screen Pending Protein C Antigen Pending Free Protein S Antigen Pending Factor V Leiden Mutat Pending Factor V Leiden Interp Pending Urine Color Yellow Urine Clarity Hazy H Urine pH 6.0 Ur Specific [place] 1.013 Urine Protein Negative Urine Glucose (UA) Negative Urine Ketones Negative Urine Occult Blood Moderate H Urine Nitrate Positive H Urine Bilirubin Negative Urine Urobilinogen 4 or greater Ur Leukocyte Esterase Small H Urine RBC 1 Urine WBC 66 H Ur Squamous Epith Cells <1 Urine Bacteria Many H Urine Mucus Few H Micro UA Comment Culture indicated Ur Microscopic Review Not Reportable Urine Culture Comments Culture indicated Anti-Cardiolipin IgG Ab Pending Anti-Cardiolipin IgM Ab Pending Prothrombin [id number] Mut Pending Impressions ITS Impressions Head MRI 05/13/18 00:00 CONCLUSION: 1. Unremarkable MRI of the brain. Head MRA 05/13/18 00:00 CONCLUSION: 1. Unremarkable MRA of the brain. Neck MRA 05/13/18 00:00 CONCLUSION: 1. Unremarkable MRA of the carotids. Percent stenosis is calculated using the diameter of the stenotic region over the diameter of the normal distal internal carotid artery Chest X-Ray 05/13/18 02:03 CONCLUSION: Negative examination. Head CT 05/14/18 02:26 CONCLUSION: 1. Negative CT Head non contrast. . Cervical Spine MRI 05/14/18 07:10 CONCLUSION: No evidence of disc protrusion or spinal canal stenosis. Discharge Plan Discharge Disposition Patient Disposition: 01 Discharge Home Discharge Condition Condition: Stable Discharge Order Discharge Orders: Discharge Order (Routine); Ordered 05/15/18 Ordered By: Jerrica Danielson Discharge Details Discharge Comment: OK to DC once cleared by Neurology. Physicians Team Primary Care Provider: Karan Betts Attending Provider: Jerrica Danielson Other Providers: William Galloway Vincent G Rxs /Orders / Referrals /Forms Prescriptions: New aspirin 325 mg Tablet 325 mg PO DAILY Qty: 30 RF: 0 Discontinued carvedilol 25 mg Tablet 25 mg PO DAILY RF: 0 lisinopril 20 mg Tablet 20 mg PO DAILY RF: 0 Referrals: Karan Betts DO [Primary Care Provider] - See Instructions Discharge Interventions Interventions: Discharge Planning - Case Management Last Done: 05/13/18 11:26 Status ED Status: Left Department
== END 2018-05-15 16:59 | disposition home or self-care (01) ==
LOC: PHED 01:58 → PHEDA 03:57 → N03 05:35
PROVIDERS: ADMIT Family Medicine; ATTEND Family Medicine
DX: E11.9 Type 2 diabetes mellitus without complications; Z77.22 Contact with and (suspected) exposure to environmental tobacco smoke (acute) (chronic); Z82.49 Family history of ischemic heart disease and other diseases of the circulatory system; R27.0 Ataxia, unspecified; G83.24 Monoplegia of upper limb affecting left nondominant side; I10 Essential (primary) hypertension; R29.704 NIHSS score 4; I63.9 Cerebral infarction, unspecified; M32.9 Systemic lupus erythematosus, unspecified; Z98.84 Bariatric surgery status; Z91.041 Radiographic dye allergy status; K91.1 Postgastric surgery syndromes; Z91.013 Allergy to seafood